=== PATIENT | female | born 1930 | race Caucasian/White ===

== ENCOUNTER 2016-09-08 17:27 | Inpatient (IN) | payer OTHER ==
[~2016-09-08] VITALS: Ht 162.6 cm; Wt 93.9 kg
--- NOTE | 2016-09-08 17:48 | ED CARDIAC/CP/PALPITATIONS ---
History of Present Illness General Chief Complaint: General Adult Stated Complaint: EKG CHANGES NEW ONSET AFIB Source: patient Exam Limitations: no limitations Vital Signs & Intake/Output Vital Signs & Intake/Output Vital Signs Date Time Temp Pulse Resp B/P B/P Pulse O2 O2 Flow FiO2 Mean Ox Delivery Rate 09/09 2015 98.2 87 18 162/82 09/08 2014 98.2 87 18 162/82 96 Room Air Room Air 09/08 1819 98.5 72 18 141/69 09/08 1818 72 18 141/69 95 Room Air Room Air 09/08 1735 98.5 126 18 164/119 95 Allergies Coded Allergies: No Known Allergies (09/08/16) Reconcile Medications Aspirin (Ecotrin*) 81 MG TABLET.DR 1 TAB PO DAILY HEART/BLOOD (Reported) Azilsartan Med/Chlorthalidone (Edarbyclor 40-25 MG Tablet) 40 MG-25 MG TABLET 1 TAB PO DAILY BP (Reported) Ezetimibe (Zetia) 10 MG TABLET 1 TAB PO DAILY CHOLESTEROL (Reported) Hydralazine HCl 25 MG TABLET 1 TAB PO BID BP (Reported) Hydrochlorothiazide 50 MG TABLET 1 TAB PO DAILY DIURETIC (Reported) Metoprolol Tartrate 50 MG TABLET 1 TAB PO BID HEART/BP (Reported) Multivitamin (Multi-Day Vitamins) 1 EACH TABLET 1 TAB PO DAILY SUPPLEMENT ( Reported) Spironolactone 25 MG TABLET 1 TAB PO DAILY DIURETIC (Reported) Triage Note: PT SENT IN BY DR. VACA FOR NEW ONSET A-FIB. PT MADE APPT. WITH HIM BECAUSE SHE HADN'T BEEN FEELING WELL SOB AFTER TAKING A FEW STEPS FOR THE PAST MONTH. PT DOES TAKE ASA 81 MG DAILY. PT WITH HX OF HTN AND HIGH CHOLESTEROL Triage Nurses Notes Reviewed? yes Onset: Gradual (6 WEEKS) Duration: week(s):, constant, continues in ED Quality/Severity: moderate, severe Radiation: no radiation HPI: 86-year-old female sent in by her primary doctor for new onset A. fib. Patient reports that she has not felt right for about a month and a half. Since around [place]anto[place] Day. She's been having some shortness of breath with exertion at times. Some fatigue and weakness. Denies any chest pain. Denies any fever or vomiting. Denies any blood thinners that she is on. Patient with to see her doctor today for a regular appointment and was found to be in new onset A. fib. Patient was sent to the hospital for further evaluation. Denies any other associated symptoms. (TAYLER RICH) Past History Travel History Traveled to [place] past 21 day No Medical History Any Pertinent Medical History? see below for history Cardiovascular: hypertension, hyperlipidemia Surgical History Surgical History: non-contributory Psychosocial History What is your primary language Finnish Tobacco Use: Never used ETOH Use: denies use Illicit Drug Use: denies illicit drug use Family History Hx Contributory? No (TAYLER RICH) Review of Systems Review of Systems Constitutional: Reports: see HPI. EENTM: Reports: no symptoms. Respiratory: Reports: see HPI. Cardiovascular: Reports: see HPI. GI: Reports: no symptoms. Genitourinary: Reports: no symptoms. Musculoskeletal: Reports: no symptoms. Skin: Reports: no symptoms. Neurological/Psychological: Reports: no symptoms. Hematologic/Endocrine: Reports: no symptoms. Immunologic/Allergic: Reports: no symptoms. All Other Systems: Reviewed and Negative (TAYLER RICH) Physical Exam Physical Exam General Appearance: well developed/nourished, no apparent distress, alert, awake Head: atraumatic, normal appearance Eyes: Bilateral: normal appearance. Ears, Nose, Throat: normal ENT inspection, hearing grossly normal Neck: normal inspection Respiratory: normal breath sounds, no respiratory distress Cardiovascular: tachycardia, irregularly irregular Gastrointestinal: soft, non-tender Rectal: heme negative stool Back: normal inspection Extremities: normal capillary refill, normal range of motion Neurologic/Psych: awake, alert, oriented x 3, normal gait, normal mood/affect Skin: intact, normal color Core Measures ACS in differential dx? No Severe Sepsis Present: No Septic Shock Present: No (TAYLER RICH) Progress Differential Diagnosis: AMI, aortic dissection, atrial fibrillation, cholecystitis, costochondritis, hyperkalemia, hypovolemia, hyperthyroid, pneumothorax, pulmonary embolism, PUD/GERD, PVCs/PACs, respiratory failure, unstable angina, V-fib/V-Tach, WPW syndrome Plan of Care: Orders Procedure Date/time Status Regular Diet 09/09 B Active Intake & Output 09/08 1954 Active OXYGEN SETUP (GEN) 09/08 1948 Active Saline Lock 09/08 1948 Active Admit to inpatient 09/08 1948 Active Vital Signs 09/08 1948 Active Activity/Ambulation 09/08 1948 Active Code Status 09/08 1948 Active Patient Data 09/08 1942 Active Add-on Test (ER Only) 09/09 1919 Active Add-on Test (ER Only) 09/08 1916 Active Add-on Test (ER Only) 09/08 1810 Active THYROID STIMULATING HORMONE 09/08 175 Complete THYROXINE 09/08 175 Complete MAGNESIUM 09/08 175 Complete FREE T4 09/08 175 Complete B-TYPE NATRIURETIC PEP (BNP) 09/08 175 Complete Telemetry/Student Services Rep 09/08 174 Active PARTIAL THROMBOPLASTIN TIME 09/08 174 Complete PROTHROMBIN TIME 09/08 174 Complete TROPONIN LEVEL 09/08 173 Complete COMPREHENSIVE METABOLIC PANEL 09/08 173 Complete CBC WITHOUT DIFFERENTIAL 09/08 173 Complete EKG 09/08 172 Active Current Medications Sig/Rayne Start time Last Medication Dose Stop Time Status Admin Heparin Sodium 25,000 UNIT Q24H 09/08 1929 AC 09/08 (Porcine) 2015 (Heparin) Sodium Chloride 500 ML Laboratory Tests 09/08/161758: Magnesium Cancelled, TSH Cancelled 09/08/161758: Anion Gap 13, Estimated GFR 36 L, BUN/Creatinine Ratio 25.7 H, Glucose 132 H, Calcium 9.7, Magnesium 2.0, Total Bilirubin 0.7, AST 88 H, ALT 138 H, Alkaline Phosphatase 117, Troponin I < 0.01, Mde-P-Ldtnjnrkjtf Pept 2520 H, Total Protein 7.2, Albumin 4.3, Globulin 2.9, Albumin/Globulin Ratio 1.5, TSH 40.100 H, Free T4 0.79 L, Thyroxine (T4) 6.6, Free T3 3.0, PT 11.3, INR 1.08, APTT 33, CBC w Diff NO MAN DIFF REQ, RBC 5.00, MCV 83.7, MCH 27.6, RDW 14.1, MPV 8.0, Gran % 70.1, Lymphocytes % 17.4 L, Monocytes % 6.9, Eosinophils % 5.0, Basophils % 0.6, Absolute Granulocytes 7.1 H, Absolute Lymphocytes 1.8, Absolute Monocytes 0.7 H, Absolute Eosinophils 0.5, Absolute Basophils 0.1, PUBS MCHC 33.0 Diagnostic Imaging: Viewed by Me: Radiology Read. Discussed w/RAD: Radiology Read. Radiology Impression: XAM TYPE: RAD - XRY-PORTABLE CHEST XRAY EXAMINATION: XR PORTABLE CHEST CLINICAL INFORMATION: Shortness of breath. COMPARISON: None TECHNIQUE: Portable AP semierect view of the chest was obtained. FINDINGS: Heart is enlarged. The cardiomediastinal silhouette is otherwise unremarkable. The lungs and pleural spaces appear clear without evidence of congestion, consolidation, or significant appearing effusion or atelectasis. There are some mild increased markings at the lung bases with questionable subtle cephalization of the pulmonary vasculature however no definite effusion is seen. There is no evidence of pneumothorax or pulmonary edema. Included osseous structures appear largely unremarkable. IMPRESSION: Heart appears mildly enlarged, mild increased markings raise the question of mild pulmonary vascular congestion without overt edema. DICTATED BY: LE HIGGINS MD DATE/TIME DICTATED:09/08/161799 DINKEY OPERATOR SLAG:MARIELENA DATE/TIME TRANSCRIBED:09/08/161799 Initial ED EKG: rate (123), AFIB, nonspecific ST T wave chg (TAYLER RICH) Departure Departure Disposition: STILL A PATIENT Condition: Stable Clinical Impression Primary Impression: Rapid atrial fibrillation Secondary Impressions: Acute kidney injury, CHF (congestive heart failure), New onset a-fib Referrals: Kailyn VACA MD (PCP/Family) Departure Forms: Customer Survey General Discharge Information Admission Note Spoke With: DELMI VALENCIA MD Documentation of Exam: Documentation of any treatments & extenuating circumstances including Concerns Regarding Discharge (functional status, medication knowledge or non-compliance, living conditions, etc.) that warrant an admission rather than observation: Patient will require cardiac telemetry. Cardiac consultation. Patient will also require IV heparin. Rate control. Echocardiogram. Patient may require IV diuresis. Spoke with Dr. Torrez from cardiology and he agrees with IV heparin. Oral meds at this time.they will consult (TAYLER RICH) PA/FUDGE CANDY MAKER Co-Sign Statement Statement: ED Attending supervision documentation- x I saw and evaluated the patient. I have also reviewed all the pertinent lab results and diagnostic results. I agree with the findings and the plan of care as documented in the PA's/FUDGE CANDY MAKER's documentation. [] I have reviewed the ED Record and agree with the PA's/FUDGE CANDY MAKER's documentation. [] Additions or exceptions (if any) to the PAs/FUDGE CANDY MAKER's note and plan are summarized below: [] (EMELI SINGLETON,BENJAMIN) Critical Care Note Critical Care Note Critical Care Time: non-applicable (TAYLER RICH)
--- NOTE | 2016-09-08 18:02 | NUR ---
BLOOD DRAWN AND SENT TO LAB [facility],GORDON LAV BLUE
--- NOTE | 2016-09-08 18:05 | RADIOLOGY REPORT ---
EXAMINATION: XR PORTABLE CHEST CLINICAL INFORMATION: Shortness of breath. COMPARISON: None TECHNIQUE: Portable AP semierect view of the chest was obtained. FINDINGS: Heart is enlarged. The cardiomediastinal silhouette is otherwise unremarkable. The lungs and pleural spaces appear clear without evidence of congestion, consolidation, or significant appearing effusion or atelectasis. There are some mild increased markings at the lung bases with questionable subtle cephalization of the pulmonary vasculature however no definite effusion is seen. There is no evidence of pneumothorax or pulmonary edema. Included osseous structures appear largely unremarkable. IMPRESSION: Heart appears mildly enlarged, mild increased markings raise the question of mild pulmonary vascular congestion without overt edema.
[2016-09-08 18:16] LABS: ABSOLUTE BASOPHIL COUNT 0.1 /CUMM (0.0-0.2); ABSOLUTE EOSINOPHIL COUNT 0.5 /CUMM (0.0-0.7); ABSOLUTE GRANULOCYTE CT 7.1 /CUMM (1.4-6.5); ABSOLUTE LYMPH COUNT 1.8 /CUMM (1.2-3.4); ABSOLUTE MONOCYTE COUNT 0.7 /CUMM (0.10-0.60); BASOPHIL % 0.6 % (0.0-2.0); GRANULOCYTE % 70.1 % (42.2-75.2); HEMATOCRIT 41.9 % (37-47); MEAN CORPUSCULAR HGB 27.6 PG (27.0-31.0); MEAN CORPUSCULAR VOLUME 83.7 FL (81.0-99.0); PLATELET COUNT 251 /CUMM (130-400); RBC DISTRIBUTION WIDTH 14.1 % (11.5-14.5); WHITE BLOOD CELL COUNT 10.1 /CUMM (4.8-10.8)
--- NOTE | 2016-09-08 18:17 | NUR ---
LINE EST #20 TO RIGHT WRIST. PT MEDICATED WITH CARDIZEM 10MG IV PER EMAR. BP PRIOR TO MEDICATION 140/104 AFIB 110'S ON CM. SHORTLY AFTER MEDICATION ADMINISTRATION BP 141/69 HR A FIB IN THE 70'S ON THE CM.
[2016-09-08] MEDS ORDERED: EDARBYCLOR 40-1 EAC1 PO (18:20)
[2016-09-08] MEDS ORDERED: METOPROLOL TART50 M1 PO (18:20)
[2016-09-08] MEDS ORDERED: SPIRONOLACTONE25 M1 PO (18:21)
[2016-09-08] MEDS ORDERED: HYDROCHLOROTHIA50 M1 PO (18:21)
[2016-09-08] MEDS ORDERED: ZETIA10 M1 PO (18:22)
[2016-09-08 18:24] LABS: PT 11.3 SEC (9.4-12.5); PTT 33 SEC (25-37)
[2016-09-08] MEDS ORDERED: HYDRALAZINE HCL25 M1 PO (18:24)
[2016-09-08] MEDS ORDERED: ASPIRIN EC81 M1 PO (18:24)
[2016-09-08] MEDS ORDERED: MULTI-DAY VITA1 EACH PO (18:24)
--- NOTE | 2016-09-08 20:07 | NUR ---
PT BED ASSIGNMENT 185-1
--- NOTE | 2016-09-08 20:18 | History & Physical ---
DAVINA QUAN MD 09/08/16 2017: General Information and HPI MD Statement: I have seen and personally examined ZANDER NOE and documented this H&P. The patient is a 86 year old F who presented with a patient stated chief complaint of new onset atrial fibrillation diagnosed by PCP. Source of Information: patient, old records Exam Limitations: no limitations History of Present Illness: Ms. Noe is a pleasant 86 year old female with PMH thyroid nodule, HTN and HLD who presents with chief complaint of atrial fibrillation diagnosed on routine EKG at her PCP Dr. Sosa's office this morning. According to the patient, about 1.[address] [place]'s day, she experienced a severe cold that lasted until about 1 week ago. The cold was noted to be associated with 1 loose stool a day (different than her normal solid stool), lethargy, malaise and increased work of breathing on exertion. This also coincided with her chronic, intermittent lower extremity edema and a 6 pound weight loss. Patient felt better about one week ago, but then this Monday/Monday she started to experience sinus congestion, non-productive cough, repeated sneezing, weakness, lethargy, shortness of breath on exertion and gaining of the 6 pounds she had previously lost. Because she continued to experience shortness of breath on exertion, she scheduled to see Dr. Sheila MD to request an inhaler but was found to be in atrial fibrillation and redirected to the [facility] ED. Of note, patient follows with Dr. Agus MD for a thyroid nodule. She also follows closely with Dr. Sheila MD who manages her hypertension. He instructed the patient to stop taking HCTZ and switch to hydralazine about 1.5 months ago, however patient confused the two medications and never switched (she continued on HCTZ while taking combined ARB/chlorthalidone). Social history is negative for illicit drug use, tobacco use or ETOH use. Surgical history is non- contributory. Allergies/Medications Allergies: Coded Allergies: No Known Allergies (09/08/16) Home Med list Aspirin (Ecotrin*) 81 MG TABLET. 1 TAB PO DAILY HEART/BLOOD (Reported) Azilsartan Med/Chlorthalidone (Edarbyclor 40-25 MG Tablet) 40 MG-25 MG TABLET 1 TAB PO DAILY BP (Reported) Ezetimibe (Zetia) 10 MG TABLET 1 TAB PO DAILY CHOLESTEROL (Reported) Hydralazine HCl 25 MG TABLET 1 TAB PO BID BP (Reported) Metoprolol Tartrate 50 MG TABLET 1 TAB PO BID HEART/BP (Reported) Multivitamin (Multi-Day Vitamins) 1 EACH TABLET 1 TAB PO DAILY SUPPLEMENT ( Reported) Spironolactone 25 MG TABLET 1 TAB PO DAILY DIURETIC (Reported) Compliance With Home Meds: GOOD Past History Travel History Traveled to [place] past 21 day No Medical History Cardiovascular: hypertension, hyperlipidemia Surgical History Surgical History: non-contributory Past Family/Social History Psychosocial History Where do you live? Home Who Do You Live With? self Services at Home: None Primary Language: [place] Smoking Status: Never Smoked ETOH Use: denies use Illicit Drug Use: denies illicit drug use Functional Ability ADLs Independent: dressing, eating, toileting, bathing. Ambulation: independent IADLs Independent: shopping, housework, finances, food prep, telephone, transportation , medication admin. Review of Systems Review of Systems Constitutional: Reports: malaise, weakness. Denies: chills, fever. EENTM: Reports: nasal congestion. Denies: visual changes, hearing changes. Cardiovascular: Reports: edema, peripheral edema. Denies: chest pain, palpitations. Respiratory: Reports: cough, short of breath. Denies: sputum production. GI: Denies: abdominal pain, nausea, vomiting. Genitourinary: Denies: dysuria, hematuria. Musculoskeletal: Denies: back pain. Skin: Denies: change in skin color, change in hair/nails, lesions. Neurological/Psychological: Denies: confusion, headache. Hematologic/Endocrine: Denies: bruising, bleeding. Immunologic/Allergic: Denies: splenectomy. All Other Systems: Reviewed and Negative Exam & Diagnostic Data Last 24 Hrs of Vital Signs/I&O Vital Signs Date Time Temp Pulse Resp B/P B/P Pulse O2 O2 Flow FiO2 Mean Ox Delivery Rate 09/09 2135 97.8 102 18 152/90 94 Room Air 09/08 2100 89 160/45 09/09 2015 98.2 87 18 162/82 09/08 2014 98.2 87 18 162/82 96 Room Air Room Air 09/08 1818 98.5 72 18 141/69 09/088 72 18 141/69 95 Room Air Room Air 09/08 1735 98.5 126 18 164/119 95 Intake & Output 09/09 0800 09/09 0000 09/08 1600 Intake Total Output Total Balance Patient 207 lb Weight Weight Standing Scale Measurement Method Physical Exam General Appearance Alert, Oriented X3, Cooperative, No Acute Distress Skin No Significant Lesion Skin Temp/Moisture Exam: Warm/Dry HEENT Atraumatic, PERRLA, EOMI, Mucous Membr. moist/pink Neck Supple, +2 Carotid Pulse wo Bruit Lymphatic Cervical nl Cardiovascular Irregularly irregular Lungs Normal Air Movement Abdomen Normal Bowel Sounds, Soft, No Tenderness Neurological Normal Speech, Normal Tone Extremities No Tenderness/Swelling, trace bilateral LE edema Vascular Pulses Symmetrical Last 24 Hrs of Labs/Jomar: Laboratory Tests 09/08/161758: Magnesium Cancelled, TSH Cancelled 09/08/161758: Anion Gap 13, Estimated GFR 36 L, BUN/Creatinine Ratio 25.7 H, Glucose 132 H, Calcium 9.7, Magnesium 2.0, Total Bilirubin 0.7, AST 88 H, ALT 138 H, Alkaline Phosphatase 117, Troponin I < 0.01, Byd-C-Bfedpemdfqp Pept 2520 H, Total Protein 7.2, Albumin 4.3, Globulin 2.9, Albumin/Globulin Ratio 1.5, TSH 40.100 H, Free T4 0.79 L, Thyroxine (T4) 6.6, Free T3 3.0, PT 11.3, INR 1.08, APTT 33, CBC w Diff NO MAN DIFF REQ, RBC 5.00, MCV 83.7, MCH 27.6, RDW 14.1, MPV 8.0, Gran % 70.1, Lymphocytes % 17.4 L, Monocytes % 6.9, Eosinophils % 5.0, Basophils % 0.6, Absolute Granulocytes 7.1 H, Absolute Lymphocytes 1.8, Absolute Monocytes 0.7 H, Absolute Eosinophils 0.5, Absolute Basophils 0.1, PUBS MCHC 33.0 Diagnostic Data EKG Results Atrial fibrillation HR 129 bpm, LBBB (incomplete) CXR Results IMPRESSION: Heart appears mildly enlarged, mild increased markings raise the question of mild pulmonary vascular congestion without overt edema. Assessment/Plan Assessment: Ms. Noe is an 86 year old female with PMH thyroid nodule, HTN and HLD who was sent in to [facility] for evaluation of new-onset atrial fibrillation by her primary care physician, Dr. Sheila MD. According to the patient, she has previously experienced a month long cold, consisting of weakness, shortness of breath on exertion, weight loss (6 pounds) and fatigue. This improved about 1 week ago but on Monday/Monday, she noted sinus congestion, shortness of breath on exertion and lethargy that prompted her to visit her PCP. In the ED: Vital signs showed T 98.5, HR 126 (decreased to 72 bpm at 10 mg IV cardizem and 60 mg PO cardizem), RR 18, BP 164/199 and O2 saturation of 95% on room air. Labs were significant for an unremarkable CBC, K 5.2, HCO3 21, BUN/cre 36/1.4 (last cre 1.4 on 08/18/16), Glu 132, AST 88, ALT 138, proBNP 2520, troponin <0.01, TSH 40.1, FT4 0.79, T4 6.6, FT3 3, and INR 1.08. CXR showed mildly enlarged heart, mild increased markings suggestive of mild pulmonary vascular congestion without overt edema. Patient is admitted to the telemetry floor and the following is the management: 1. New-onset atrial fibrillation * Possibly 2/2 thyroid dysfunction? * Continuous telemetry monitoring on tele * Continue IV heparin drip * Place cardio consult in AM * Continue rate control meds, including lopressor 12.5 mg PO BID, cardizem 30 mg PO Q6 * If current rate control regimen does not control heart rate, consider cardizem drip * Echocardiogram pending, follow up results * Trend troponins/EKG x 3 2. Abnormal thyroid panel * TSH 40.1, FT4 0.79, T4 6.6, FT3 3 * Consideration for possible prior subacute hyperthyroid state during patient's 1 month illness followed by current hypothyroid state?, differential also includes sick euthyroid syndrome * Repeat TFTs in AM 3. Acute transaminitis * In the setting of elevated proBNP, increased pulmonary vascular congestion on CXR, intermittent lower extremity edema and elevated AST/ALT, consider fluid overload state 2/2 CHF on differential * Follow up echocardiogram * Repeat LFTs and monitor for resolution * Of note, no history of abdominal pain/nausea/vomiting and RUQ nontender on palpation 4. Chronic renal insufficiency * Recent lab values show cre of 1.2-1.4, current cre 1.4 * Repeat BEP and monitor electrolytes closely * Avoid nephrotoxins 5. HTN, HLD * Continue ASA 81 mg PO daily * Continue metoprolol and cardizem as noted above * Zetia 10 mg PO daily FULL CODE DVTP: IV heparin Heart Healthy Diet Mild pain pathway As Ranked By This Provider Problem List: 1. New onset a-fib 2. Transaminitis 3. Hypothyroid 4. Acute kidney injury Core Measures/Miscellaneous Acute Coronary Syndrome ACS Diagnosis: No Cerebrovascular Accident CVA/TIA Diagnosis: No Congestive Heart Failure CHF Diagnosis: No Venous Thromboembolism VTE Risk Factors: Acute medical illness, Age > 40, Obesity No [facility] VTE prophylaxis d/t: No contraindications No VTE Pharm Prophylaxis d/t: No contraindications VTE Diagnosis: No VTE Type: NONE VTE Confirmed by (Test): NONE Severe Sepsis Severe Sepsis Present: No Septic Shock Septic Shock Present: No Miscellaneous Documentation Attending Case Discussed With: DELMI VALENCIA MD Primary Care Physician: Kailyn SOSA MD Patient sees these Specialists Dr. Agus MD- Endocrinology Level of Patient Care: Telemetry [facility] 0239: Resident Review Statement Resident Statement: examined this patient, discussed with underwriting intern, agreed with underwriting intern Other Findings: Problem List: * New onset Atrial Fibrillation * Hypertension * Hyperlipidemia * H/O thyroid nodules currently presenting with elevated TSH and low T4. ? Hypothyroidism in the setting of subacute thyroiditis from URTI vs Sick Euthyroid. Plan: * Admit to telemetry * Heparin gtt for anticoagulation. * Rate control with Cardizem 30Q6 for now. If tachycardic, start Cardizem drip for rate control. Decrease Metoprolol to 12.5 mg BID to prevent reflex tachycardia, before weaning off completely. * Continue other home medications. * Consider replacing LT4 * Consider Endo consult in AM for elevated TSH levels with decrease FT4 * Pain Pathway: Tylenol PRN * DVT PPX: Heparin gtt * Code Status: Full Code DELMI VALENCIA 09/09/16 0730: Attending MD Review Statement Attending Statement Attending Statement: examined this patient, discuss w/resident/PA/LUG BREAKER AND WIRE PULLER, agreed w/resident/PA/LUG BREAKER AND WIRE PULLER, reviewed EMR data (avail), reviewed images, amended to note Attending Assessment/Plan: CC: Sent by PCP for new onset A. fib PMH: HTN, HLD, thyroid nodule Patient was not feeling chronically well since one month of symptoms of lethargy , malaise, increased work of breathing, chronic intermittent lower extremity edema. Symptoms improved 1 week back but then again gradually she started to feel lethargy labored breathing so she followed up with PCP, found to have new onset A. fib was sent to ER. Currently denies any shortness of breath, chest pain, palpitations, chest tightness. Of note patient was recently switched from hydrochlorothiazide to hydralazine, but she got confused and continued hydrochlorothiazide instead of hydralazine and so taking chlorthalidone and hydrochlorothiazide at the same time. Vitals: Afebrile, HR 126 at presentation improved to 70s after 1 dose of Cardizem IV, RR, blood pressure, O2 saturation within acceptable range. On exam: A O 3, cooperative, no acute distress, neck supple, JVD normal, no lymphadenopathy, mucosa moist, no focal neurological deficit, no dependent edema , no obvious skin rashes or inflammation CVS: S1-S2, RRR. RS: Clear to auscultate bilaterally. Abdomen: Soft, NT, ND, bowel sounds present. Labs: CBC unremarkable, mildly elevated creatinine to 1.4, AST 88, ALT 138, alkaline phosphatase 117, troponin 0.01, proBNP 2520, TSH 40. EKG: A. fib CXR: Heart appears mildly enlarged, mild increased markings raise the question of mild pulmonary vascular congestion without overt edema. A and P Patient comes in for new onset A. fib, no precipitating factors. History of hypertension dyslipidemia, probably rate controlled with metoprolol. Patient's heart rate was in 130s when she arrived, received 1 dose of Cardizem and heart rate was lower than 100. Even though chest x-ray mentions mild congestion, patient is comfortable without any acute distress, not on any oxygen. Given her elevated creatinine and excessive thiazide diuretic use, will hold Lasix for now , reassess in a.m. patient has transaminitis of unclear etiology. + New-onset A. fib + Mild pulmonary congestion + Renal insufficiency + Transaminitis + Hypothyroidism - Admit to telemetry - Hold HCTZ and chlorthalidone, ACEI - Continue metoprolol at lower dose 12.5 twice a day - Continue Cardizem 60 mg by mouth every 8 hours - If patient has RVR, consider starting IV Cardizem drip - Continue heparin drip - Cardiology consult in a.m. - 2-D echocardiogram - Serial EKG and troponin - 1 dose of IV Lasix in a.m. - Adequate pain control - Repeat TSH in a.m. - Endocrine consult
--- NOTE | 2016-09-08 20:20 | NUR ---
ASSUMED CARE FROM NEAL DURÁN
--- NOTE | 2016-09-08 20:28 | NUR ---
PT A/O X4. RESP UNLABORED. PT AFIB ON THE MONITOR. HR 70-90. PT APPEARS TO BE RESTING COMFORTABLY. DENIES PAIN AND SOB. SKIN WARM AND DRY. NO APPARENT DISTRESS. PT MEDICATED WITH CARDIZEM PO. HEPARIN INFUSING.
[2016-09-08 21:36] VITALS: BP 152/90
[2016-09-09 03:18] LABS: PTT > 120 SEC (25-37)
--- NOTE | 2016-09-09 07:31 | Admission Certification ---
Admission Certification Certification Statement - As attending physician, I certify that at the time of - admission, based on clinical presentation, severity of - symptoms, need for further diagnostic testing and - therapeutic interventions, and risk of adverse outcomes - without in-hospital treatment, in my clinical assessment, - this patient requires an acute hospital stay for a minimum - of two nights or longer. I have also considered psychsocial - factors such as support system, advanced age, financial - issues, cognitive issues, and failed out-patient treatments, - past re-admission history, safety of patient, and lack of - compliance as applicable. Specific rationale supporting this admission is: New onset A. fib, hypothyroidism
[2016-09-09 08:20] VITALS: BP 130/74
[2016-09-09 11:26] LABS: ABSOLUTE BASOPHIL COUNT 0 /CUMM (0.0-0.2); ABSOLUTE EOSINOPHIL COUNT 0.2 /CUMM (0.0-0.7); ABSOLUTE GRANULOCYTE CT 7.3 /CUMM (1.4-6.5); ABSOLUTE MONOCYTE COUNT 0.7 /CUMM (0.10-0.60); BASOPHIL % 0.3 % (0.0-2.0); EOSINOPHIL % 2.1 % (0-5); GRANULOCYTE % 71.2 % (42.2-75.2); HEMATOCRIT 40.5 % (37-47); MEAN CORPUSCULAR HGB 27.6 PG (27.0-31.0); MEAN CORPUSCULAR HGB CONC 32.7 G/DL (33.0-37.0); MEAN CORPUSCULAR VOLUME 84.4 FL (81.0-99.0); MEAN PLATELET VOLUME 8.7 FL (7.4-10.4); PLATELET COUNT 217 /CUMM (130-400); RBC DISTRIBUTION WIDTH 13.9 % (11.5-14.5); WHITE BLOOD CELL COUNT 10.2 /CUMM (4.8-10.8)
[2016-09-09 11:37] LABS: PTT > 120 SEC (25-37)
--- NOTE | 2016-09-09 12:18 | PN- Att Addend ---
Attending Addendum Attending Brief Note Patient seen and examined, feels tired. She did not get a good night sleep. She denies any current shortness of breath or any palpitations. Patient is admitted with a new onset A. fib. Vital Signs Date Time Temp Pulse Resp B/P B/P Pulse O2 O2 Flow FiO2 Mean Ox Delivery Rate 09/09 922 72 118/78 09/09 0825 Room Air Room Air 09/09 0820 97.9 78 18 130/74 95 Room Air 09/09 0735 88 130/74 09/09 0135 88 148/70 09/08 2136 97.8 102 18 152/90 94 Room Air 09/08 2100 89 160/45 09/09 2015 98.2 87 18 162/82 09/08 2014 98.2 87 18 162/82 96 Room Air Room Air 09/08 1819 98.5 72 18 141/69 09/08 1818 72 18 141/69 95 Room Air Room Air 09/08 1735 98.5 126 18 164/119 95 on exam; aox3, nad. cv; s1,s2, irregular resp; clear abd; soft, nt, bs+ ext; trace edema. Laboratory Tests 09/09 09/09 09/09 1000 1000 0230 Chemistry Sodium Pending Potassium Pending Chloride Pending Carbon Dioxide Pending Anion Gap Pending BUN Pending Creatinine Pending BUN/Creatinine Ratio Pending Troponin I (< 0.11 ng/ml) 0.03 0.04 TSH &T3 &Free T4 Intrp Pending Coagulation APTT (25 - 37 SEC) > 120 *H > 120 *H Hematology CBC w Diff NO MAN DIFF REQ WBC (4.8 - 10.8 /CUMM) 10.2 RBC (4.20 - 5.40 /CUMM) 4.80 Hgb (12.0 - 16.0 G/DL) 13.3 Hct (37 - 47 %) 40.5 MCV (81.0 - 99.0 FL) 84.4 MCH (27.0 - 31.0 PG) 27.6 RDW (11.5 - 14.5 %) 13.9 Plt Count (130 - 400 /CUMM) 217 MPV (7.4 - 10.4 FL) 8.7 Gran % (42.2 - 75.2 %) 71.2 Lymphocytes % (20.5 - 51.1 %) 19.8 L Monocytes % (1.7 - 9.3 %) 6.6 Eosinophils % (0 - 5 %) 2.1 Basophils % (0.0 - 2.0 %) 0.3 Absolute Granulocytes (1.4 - 6.5 /CUMM) 7.3 H Absolute Lymphocytes (1.2 - 3.4 /CUMM) 2.0 Absolute Monocytes (0.10 - 0.60 /CUMM) 0.7 H Absolute Eosinophils (0.0 - 0.7 /CUMM) 0.2 Absolute Basophils (0.0 - 0.2 /CUMM) 0 PUBS MCHC (33.0 - 37.0 G/DL) 32.7 L 09/08 09/08 1759 1759 Chemistry Sodium (137 - 145 mmol/L) 137 Potassium (3.5 - 5.1 mmol/L) 5.2 H Chloride (98 - 107 mmol/L) 103 Carbon Dioxide (22 - 30 mmol/L) 21 L Anion Gap (5 - 16) 13 BUN (7 - 17 mg/dL) 36 H Creatinine (0.5 - 1.0 mg/dL) 1.4 H Estimated GFR (>60 ml/min) 36 L BUN/Creatinine Ratio (7 - 25 %) 25.7 H Glucose (65 - 99 mg/dL) 132 H Calcium (8.4 - 10.2 mg/dL) 9.7 Magnesium (1.6 - 2.3 mg/dL) Cancelled 2.0 Total Bilirubin (0.2 - 1.3 mg/dL) 0.7 AST (14 - 36 U/L) 88 H ALT (9 - 52 U/L) 138 H Alkaline Phosphatase (<127 U/L) 117 Troponin I (< 0.11 ng/ml) < 0.01 Rap-I-Yijytsxgkcz Pept (<125 pg/mL) 2520 H Total Protein (6.3 - 8.2 g/dL) 7.2 Albumin (3.5 - 5.0 g/dL) 4.3 Globulin (1.9 - 4.2 gm/dL) 2.9 Albumin/Globulin Ratio (1.1 - 2.2 %) 1.5 TSH (0.270 - 4.200 uIU/mL) Cancelled 40.100 H Free T4 (0.85 - 1.93 ng/dL) 0.79 L Thyroxine (T4) (4.5 - 10.9 ug/dL) 6.6 Free T3 (2.34 - 5.61 pg/mL) 3.0 Coagulation PT (9.4 - 12.5 SEC) 11.3 INR (0.90 - 1.19) 1.08 APTT (25 - 37 SEC) 33 Hematology CBC w Diff NO MAN DIFF REQ WBC (4.8 - 10.8 /CUMM) 10.1 RBC (4.20 - 5.40 /CUMM) 5.00 Hgb (12.0 - 16.0 G/DL) 13.8 Hct (37 - 47 %) 41.9 MCV (81.0 - 99.0 FL) 83.7 MCH (27.0 - 31.0 PG) 27.6 RDW (11.5 - 14.5 %) 14.1 Plt Count (130 - 400 /CUMM) 251 MPV (7.4 - 10.4 FL) 8.0 Gran % (42.2 - 75.2 %) 70.1 Lymphocytes % (20.5 - 51.1 %) 17.4 L Monocytes % (1.7 - 9.3 %) 6.9 Eosinophils % (0 - 5 %) 5.0 Basophils % (0.0 - 2.0 %) 0.6 Absolute Granulocytes (1.4 - 6.5 /CUMM) 7.1 H Absolute Lymphocytes (1.2 - 3.4 /CUMM) 1.8 Absolute Monocytes (0.10 - 0.60 /CUMM) 0.7 H Absolute Eosinophils (0.0 - 0.7 /CUMM) 0.5 Absolute Basophils (0.0 - 0.2 /CUMM) 0.1 PUBS MCHC (33.0 - 37.0 G/DL) 33.0 A/P; 86 y/o F with pmh sig for abnormal TFTs, thyroid nodule, HTN and HLD admitted for new onset A. fib. Patient also had mild pulmonary vascular congestion and mild CAIO. At this point her rate is controlled with oral medications. As discussed with cardiology, she will be kept on her home dose of beta anne-marie metoprolol 50 twice a day. She is currently on 30 mg of Cardizem every 6 hours, can likely switch her to Cardizem CD 120 mg as discussed with Dwayne Liao MD. Anticoagulation was also discussed and he is recommending Eliquis. Please obtain endocrine consult for abnormal TFTs. If heart rate under control, echo does not show any significant findings and patient stable from endocrine standpoint, likely discharge over the weekend. DVT Px; currently on IV heparin but will switch her to Eliquis.
--- NOTE | 2016-09-09 12:32 | Cons- Cardiology ---
General Information and HPI Consulting Request Date of Consult: 09/09/16 Requested By: EMANUEL JULES MD Reason for Consult: New onset atrial fibrillation Source of Information: patient, family, old records History of Present Illness: This is an 86-year-old female with a past medical history of left bundle-branch block, hypertension, hyperlipidemia, and statin intolerance is referred to [facility] after being found to be in new onset atrial fibrillation and her PCP's office. She notes symptoms of an upper respiratory tract infection that started in July and after that had been experiencing some dyspnea on exertion without chest pain and some intermittent lower extremity edema which she has had in the past. This was not associated with any chest pain, palpitations, presyncope, headache, slurring of speech, or fever. She did experience some weakness. She denied any orthopnea or paroxysmal nocturnal dyspnea. Denies any bleeding episodes. She did report a nonproductive cough. On my interview with the patient this morning she feels well with no symptoms at rest. Allergies/Medications Allergies: Coded Allergies: No Known Allergies (09/08/16) Home Med List: Aspirin (Ecotrin*) 81 MG TABLET.DR 1 TAB PO DAILY HEART/BLOOD (Reported) Azilsartan Med/Chlorthalidone (Edarbyclor 40-25 MG Tablet) 40 MG-25 MG TABLET 1 TAB PO DAILY BP (Reported) Ezetimibe (Zetia) 10 MG TABLET 1 TAB PO DAILY CHOLESTEROL (Reported) Hydralazine HCl 25 MG TABLET 1 TAB PO BID BP (Reported) Metoprolol Tartrate 50 MG TABLET 1 TAB PO BID HEART/BP (Reported) Multivitamin (Multi-Day Vitamins) 1 EACH TABLET 1 TAB PO DAILY SUPPLEMENT ( Reported) Spironolactone 25 MG TABLET 1 TAB PO DAILY DIURETIC (Reported) Current Medications: Current Medications Sig/Rayne Start time Last Medication Dose Route Stop Time Status Admin Acetaminophen 650 MG Q8P PRN 09/09 0145 AC PO Aspirin Buffered 81 MG DAILY 09/09 1000 AC 09/09 PO 0923 Diltiazem HCl 30 MG Q6 09/08 2359 AC 09/09 PO 0735 Diltiazem HCl 60 MG ONCE ONE 09/08 1929 DC 09/08 PO 09/08 Diltiazem HCl 0 .STK-MED ONE 09/08 1815 DC .ROUTE Diltiazem HCl 10 MG ONCE ONE 09/08 1800 DC 09/08 IV PUSH 09/08 1801 1819 Ezetimibe 10 MG DAILY 09/09 1000 DC PO Ezetimibe 10 MG DAILY 09/08 2245 AC 09/09 PO 0035 Heparin Sodium 0 .STK-MED ONE 09/08 2000 DC (Porcine) .ROUTE Heparin Sodium 5,000 UNIT ONCE ONE 09/08 1930 DC 09/08 (Porcine) IV 09/08 Heparin Sodium 25,000 UNIT Q24H 09/08 193 AC 09/08 (Porcine) IV 2016 Sodium Chloride 500 ML Metoprolol Tartrate 12.5 MG BID 09/09 1000 AC 09/09 PO 0923 Review of Systems Review of Systems: Review of systems as per HPI. The remainder of a 10 point review of systems was reviewed and was otherwise negative. Past History Travel History Traveled to [place] past 21 day No Medical History Cardiovascular: hypertension, hyperlipidemia Surgical History Surgical History: non-contributory Psychosocial History Where Do You Live? Home Who Do You Live With? self Services at Home: None Primary Language: Nicarag[place] Smoking Status: Never Smoked ETOH Use: denies use Illicit Drug Use: denies illicit drug use Functional Ability ADLs Independent: dressing, eating, toileting, bathing. Ambulation: independent IADLs Independent: shopping, housework, finances, food prep, telephone, transportation , medication admin. Exam & Diagnostic Data Vital Signs and I&O Vital Signs Date Time Temp Pulse Resp B/P B/P Pulse O2 O2 Flow FiO2 Mean Ox Delivery Rate 09/09 0923 72 118/78 09/09 0825 Room Air Room Air 09/09 0820 97.9 78 18 130/74 95 Room Air 09/09 0735 88 130/74 09/09 0135 88 148/70 09/08 2136 97.8 102 18 152/90 94 Room Air 09/08 2100 89 160/45 09/09 2015 98.2 87 18 162/82 09/08 2014 98.2 87 18 162/82 96 Room Air Room Air 09/08 181 98.5 72 18 141/69 09/08 1818 72 18 141/69 95 Room Air Room Air 09/08 1735 98.5 126 18 164/119 95 Intake & Output 09/09 1600 09/09 0800 09/09 0000 09/08 1600 09/08 0809/08 0000 Intake Total 695 200 Output Total 225 Balance 470 200 Intake, IV 575 Intake, Oral 120 200 Output, Urine 225 Patient 207 lb Weight Weight Standing Scale Measurement Method Physical Exam: General: no apparent distress. Alert. Eyes: No obvious scleral icterus. HEENT: No jugular venous distention or abnormal jugular venous pulsations. Cardiovascular: Normal intensity S1/S2. Irregular Respiratory: Lungs clear to auscultation bilaterally. Abdomen: Soft, nontender with no guarding or rebound tenderness. Musculoskeletal: No clubbing or cyanosis noted Skin: No obvious rashes or ulcerations, trace lower extremity edema Neurologic: No gross focal deficits noted. Lymph: No gross lymphadenopathy. Labs/Jomar Results: Laboratory Tests 09/09 09/09 09/09 1000 1000 0230 Chemistry Sodium Pending Potassium Pending Chloride Pending Carbon Dioxide Pending Anion Gap Pending BUN Pending Creatinine Pending BUN/Creatinine Ratio Pending Troponin I (< 0.11 ng/ml) 0.03 0.04 TSH &T3 &Free T4 Intrp Pending Coagulation APTT (25 - 37 SEC) > 120 *H > 120 *H Hematology CBC w Diff NO MAN DIFF REQ WBC (4.8 - 10.8 /CUMM) 10.2 RBC (4.20 - 5.40 /CUMM) 4.80 Hgb (12.0 - 16.0 G/DL) 13.3 Hct (37 - 47 %) 40.5 MCV (81.0 - 99.0 FL) 84.4 MCH (27.0 - 31.0 PG) 27.6 RDW (11.5 - 14.5 %) 13.9 Plt Count (130 - 400 /CUMM) 217 MPV (7.4 - 10.4 FL) 8.7 Gran % (42.2 - 75.2 %) 71.2 Lymphocytes % (20.5 - 51.1 %) 19.8 L Monocytes % (1.7 - 9.3 %) 6.6 Eosinophils % (0 - 5 %) 2.1 Basophils % (0.0 - 2.0 %) 0.3 Absolute Granulocytes (1.4 - 6.5 /CUMM) 7.3 H Absolute Lymphocytes (1.2 - 3.4 /CUMM) 2.0 Absolute Monocytes (0.10 - 0.60 /CUMM) 0.7 H Absolute Eosinophils (0.0 - 0.7 /CUMM) 0.2 Absolute Basophils (0.0 - 0.2 /CUMM) 0 PUBS MCHC (33.0 - 37.0 G/DL) 32.7 L 09/08 09/08 1759 1759 Chemistry Sodium (137 - 145 mmol/L) 137 Potassium (3.5 - 5.1 mmol/L) 5.2 H Chloride (98 - 107 mmol/L) 103 Carbon Dioxide (22 - 30 mmol/L) 21 L Anion Gap (5 - 16) 13 BUN (7 - 17 mg/dL) 36 H Creatinine (0.5 - 1.0 mg/dL) 1.4 H Estimated GFR (>60 ml/min) 36 L BUN/Creatinine Ratio (7 - 25 %) 25.7 H Glucose (65 - 99 mg/dL) 132 H Calcium (8.4 - 10.2 mg/dL) 9.7 Magnesium (1.6 - 2.3 mg/dL) Cancelled 2.0 Total Bilirubin (0.2 - 1.3 mg/dL) 0.7 AST (14 - 36 U/L) 88 H ALT (9 - 52 U/L) 138 H Alkaline Phosphatase (<127 U/L) 117 Troponin I (< 0.11 ng/ml) < 0.01 Itg-K-Yejsagljrhu Pept (<125 pg/mL) 2520 H Total Protein (6.3 - 8.2 g/dL) 7.2 Albumin (3.5 - 5.0 g/dL) 4.3 Globulin (1.9 - 4.2 gm/dL) 2.9 Albumin/Globulin Ratio (1.1 - 2.2 %) 1.5 TSH (0.270 - 4.200 uIU/mL) Cancelled 40.100 H Free T4 (0.85 - 1.93 ng/dL) 0.79 L Thyroxine (T4) (4.5 - 10.9 ug/dL) 6.6 Free T3 (2.34 - 5.61 pg/mL) 3.0 Coagulation PT (9.4 - 12.5 SEC) 11.3 INR (0.90 - 1.19) 1.08 APTT (25 - 37 SEC) 33 Hematology CBC w Diff NO MAN DIFF REQ WBC (4.8 - 10.8 /CUMM) 10.1 RBC (4.20 - 5.40 /CUMM) 5.00 Hgb (12.0 - 16.0 G/DL) 13.8 Hct (37 - 47 %) 41.9 MCV (81.0 - 99.0 FL) 83.7 MCH (27.0 - 31.0 PG) 27.6 RDW (11.5 - 14.5 %) 14.1 Plt Count (130 - 400 /CUMM) 251 MPV (7.4 - 10.4 FL) 8.0 Gran % (42.2 - 75.2 %) 70.1 Lymphocytes % (20.5 - 51.1 %) 17.4 L Monocytes % (1.7 - 9.3 %) 6.9 Eosinophils % (0 - 5 %) 5.0 Basophils % (0.0 - 2.0 %) 0.6 Absolute Granulocytes (1.4 - 6.5 /CUMM) 7.1 H Absolute Lymphocytes (1.2 - 3.4 /CUMM) 1.8 Absolute Monocytes (0.10 - 0.60 /CUMM) 0.7 H Absolute Eosinophils (0.0 - 0.7 /CUMM) 0.5 Absolute Basophils (0.0 - 0.2 /CUMM) 0.1 PUBS MCHC (33.0 - 37.0 G/DL) 33.0 Diagnostic Data EKG Results Tracing was personally reviewed and shows atrial fibrillation at 91 bpm with left bundle branch block CXR Results IMPRESSION: Heart appears mildly enlarged, mild increased markings raise the question of mild pulmonary vascular congestion without overt edema. Other Results Telemetry tracings were personally reviewed and show atrial fibrillation with controlled ventricular response rate Assessment/Plan Assessment/Plan 1. New onset atrial fibrillation 2. History of chronic left bundle-branch block 3. Dyspnea on exertion 4. Abnormal TFTs 5. HTN 6. HLD with statin intolerance The patient is noted to be in new onset atrial fibrillation which may have been contributing to some of her dyspnea over the last couple of months. Recommend continuing her outpatient metoprolol and adding Cardizem 120 mg extended release daily. Her troponins are within normal limits and she does not appear to be in congestive heart failure. I had an extensive discussion with the patient regarding the risks versus benefits of full anticoagulation and reviewed various options. After careful discussion and given her elevated CHADS-Vasc score she has elected to proceed with full anticoagulation and chooses twice a day Eliquis at this time. Aspirin can be discontinued while on full anticoagulation. Echocardiogram has been ordered and is currently pending. She may be a candidate for outpatient cardioversion in the future if she does not spontaneously convert to sinus rhythm after discharge. Fernandez Liao MD [facility] Consult Acknowledgment - Thank you for your consult request.
--- NOTE | 2016-09-09 12:44 | ECHOCARDIOGRAM REPORT ---
ZANDER DUKE Age: 86 : 1930 Gender: F Exam Date: 09/09/2016 09:49 Exam Location: 1 [address] Ht (in): 64 Wt (lb): 207 BSA: 2.10 BP: 130 / 74 Ordering Physician: DAVEY PUENTES MD Referring Physician: DAVEY PUENTES MD Technologist: Travis Baum [facility] Room Number: 185-1 Indications: AFIB/FLUTTER Rhythm: Technical Quality: FINDINGS Left Ventricle Left ventricular cavity size normal. Left ventricular wall thickness mildly increased. Abnormal septal motion consistent with left bundle branch block. Left ventricular ejection fraction is estimated at > 55 %. Right Ventricle Normal right ventricular size and function. Right Atrium Mild right atrial dilatation. Left Atrium Mild left atrial dilatation. Mitral Valve Mild mitral annular calcification. No mitral stenosis. Mild mitral regurgitation. Aortic Valve Trileaflet aortic valve. No aortic stenosis. Tricuspid Valve Structurally normal tricuspid valve. [id number] tricuspid regurgitation. Right ventricular systolic pressure estimated at 40 mmHg. Pulmonic Valve Pulmonic valve not well visualized, grossly normal. Pericardium Small posterior pericardial effusion. No echocardiographic findings to suggest a hemodynamically significant pericardial effusion. Great Vessels Normal size aortic root. CONCLUSIONS Left ventricular cavity size normal. Left ventricular wall thickness mildly increased. Abnormal septal motion consistent with left bundle branch block. Left ventricular ejection fraction is estimated at > 55 %. Normal right ventricular size and function. Mild right atrial dilatation. Mild left atrial dilatation. Qkzg-hu-vjbdlenz tricuspid regurgitation. Right ventricular systolic pressure estimated at 40 mmHg. Small posterior pericardial effusion. No echocardiographic findings to suggest a hemodynamically significant pericardial effusion. Dwayne Liao M.D. (Electronically Signed) Final Date: 09 Sep 2016 12:44 MEASUREMENTS (Male / Female) Normal Values 2D ECHO LV Diastolic Diameter PLAX 3.8 cm 4.2 - 5.9 / 3.9 - 5.3 cm LV Systolic Diameter PLAX 2.4 cm 2.1 - 4.0 cm LV Fractional Shortening PLAX 36.8 % 25 - 46 % LV Ejection Fraction 2D Teich 67.5 % IVS Diastolic Thickness 1.3 cm LVPW Diastolic Thickness 1.1 cm LV Relative Wall Thickness 0.6 RV Internal Dim ED PLAX 2.9 cm 1.9 - 3.8 cm LVOT Diameter 1.7 cm Aortic Root Diameter 2.0 cm LA Systolic Diameter LX 2.9 cm 3.0 - 4.0 / 2.7 - 3.8 cm LA Volume 44.0 cm 18 - 58 / 22 - 52 cm Ascending Aorta Diameter 2.5 cm DOPPLER AV Peak Velocity 112.0 cm/s AV Peak Gradient 5.0 mmHg AV Mean Velocity 76.5 cm/s AV Mean Gradient 3.0 mmHg AV Velocity Time Integral 21.0 cm LVOT Peak Velocity 82.7 cm/s LVOT Peak Gradient 2.7 mmHg LVOT Mean Velocity 58.2 cm/s LVOT Mean Gradient 2.0 mmHg LVOT Velocity Time Integral 17.8 cm LVOT Stroke Volume 40.4 cm AV Area Cont Eq vti 1.9 cm AV Area Cont Eq pk 1.7 cm MV Peak Velocity 104.0 cm/s MV Peak Gradient 4.3 mmHg MV Mean Velocity 52.9 cm/s MV Mean Gradient 1.0 mmHg Mitral E Point Velocity 97.7 cm/s Mitral A Point Velocity 47.4 cm/s Mitral E to A Ratio 2.1 MV PHT Velocity 109.0 cm/s MV Deceleration [place] 406.0 cm/s MV Pressure Half Time 80.5 ms MV Area PHT 2.7 cm MV Deceleration Time 180.0 ms TR Peak Velocity 296.0 cm/s TR Peak Gradient 35.0 mmHg Right Atrial Pressure 5.0 mmHg Pulmonary Artery Systolic Pressu 40.0 mmHg Right Ventricular Systolic Press 40.0 mmHg PV Peak Velocity 67.6 cm/s PV Peak Gradient 1.8 mmHg PV Mean Velocity 43.5 cm/s PV Mean Gradient 1.0 mmHg PV Velocity Time Integral 14.5 cm
--- NOTE | 2016-09-09 13:16 | Cons- Endocrinology ---
General Information and HPI Consulting Request Date of Consult: 09/09/16 Requested By: medical team Reason for Consult: evaluation of abnormal TFT. Source of Information: patient, old records Exam Limitations: no limitations History of Present Illness: Patient has had history of multinodular goiter. There are 4 nodules in her right thyroid lobe measuring 8 mm, 8 mm, 2.1 cm and 6 mm in size. Biopsy was done in 2010 and her right dominant thyroid nodule was benign. Her anti TPO wasb 33 and anti Tg was < 28. Her TSH was between 2.92 and 4.67 over past several years and clinically she was asymptomatic. I saw her in office for routine f/u on 08/17/2016. Repeat TFT was done on 08/18/2016-- TSH was 0.311 and free T4 was 1.40. Patient was admitted for atrial fibrillation and HR in the 120s. Repeat blood work on 09/08/2016 showed TSH 40.1 and free T4 0.79. Over past 5-6 weeks, patient has been sick with cold. She denied having neck pain or significant sore throat. Allergies/Medications Allergies: Coded Allergies: No Known Allergies (09/08/16) Home Med List: Aspirin (Ecotrin*) 81 MG TABLET.DR 1 TAB PO DAILY HEART/BLOOD (Reported) Azilsartan Med/Chlorthalidone (Edarbyclor 40-25 MG Tablet) 40 MG-25 MG TABLET 1 TAB PO DAILY BP (Reported) Ezetimibe (Zetia) 10 MG TABLET 1 TAB PO DAILY CHOLESTEROL (Reported) Hydralazine HCl 25 MG TABLET 1 TAB PO BID BP (Reported) Metoprolol Tartrate 50 MG TABLET 1 TAB PO BID HEART/BP (Reported) Multivitamin (Multi-Day Vitamins) 1 EACH TABLET 1 TAB PO DAILY SUPPLEMENT ( Reported) Spironolactone 25 MG TABLET 1 TAB PO DAILY DIURETIC (Reported) Review of Systems Review of Systems Constitutional: Reports: see HPI. Cardiovascular: Reports: palpitations. Respiratory: Reports: short of breath. GI: Denies: abdominal pain. Genitourinary: Denies: dysuria. Musculoskeletal: Denies: muscle pain. Hematologic/Endocrine: Denies: polyuria, polydipsia. Past History Travel History Traveled to [place] past 21 day No Medical History Cardiovascular: hypertension, hyperlipidemia Endocrine: thyroid nodules Surgical History Surgical History: non-contributory Psychosocial History Where Do You Live? Home Who Do You Live With? self Services at Home: None Primary Language: [place] Smoking Status: Never Smoked ETOH Use: denies use Illicit Drug Use: denies illicit drug use Functional Ability ADLs Independent: dressing, eating, toileting, bathing. Ambulation: independent IADLs Independent: shopping, housework, finances, food prep, telephone, transportation , medication admin. Exam & Diagnostic Data Last 24 Hrs of Vital Signs/I&O Vital Signs Date Time Temp Pulse Resp B/P B/P Pulse O2 O2 Flow FiO2 Mean Ox Delivery Rate 09/09 0923 72 118/78 09/09 0825 Room Air Room Air 09/09 0820 97.9 78 18 130/74 95 Room Air 09/09 0735 88 130/74 09/09 0135 88 148/70 09/08 2136 97.8 102 18 152/90 94 Room Air 09/08 2100 89 160/45 09/09 2015 98.2 87 18 162/82 09/08 2014 98.2 87 18 162/82 96 Room Air Room Air 09/08 1819 98.5 72 18 141/69 09/08 1818 72 18 141/69 95 Room Air Room Air 09/08 1735 98.5 126 18 164/119 95 Intake & Output 09/09 1600 09/09 0800 09/09 0000 Intake Total 695 200 Output Total 225 Balance 470 200 Intake, IV 575 Intake, Oral 120 200 Output, Urine 225 Patient 207 lb Weight Weight Standing Scale Measurement Method Physical Exam General Appearance: no apparent distress Neck: thyromegaly Respiratory: lungs clear Cardiovascular: irregularly irregular Extremities: no edema Labs/Jomar Results: Laboratory Tests 09/09 09/09 09/09 1000 1000 0230 Chemistry Sodium Pending Potassium Pending Chloride Pending Carbon Dioxide Pending Anion Gap Pending BUN Pending Creatinine Pending BUN/Creatinine Ratio Pending Troponin I (< 0.11 ng/ml) 0.03 0.04 TSH &T3 &Free T4 Intrp Pending Coagulation APTT (25 - 37 SEC) > 120 *H > 120 *H Hematology CBC w Diff NO MAN DIFF REQ WBC (4.8 - 10.8 /CUMM) 10.2 RBC (4.20 - 5.40 /CUMM) 4.80 Hgb (12.0 - 16.0 G/DL) 13.3 Hct (37 - 47 %) 40.5 MCV (81.0 - 99.0 FL) 84.4 MCH (27.0 - 31.0 PG) 27.6 RDW (11.5 - 14.5 %) 13.9 Plt Count (130 - 400 /CUMM) 217 MPV (7.4 - 10.4 FL) 8.7 Gran % (42.2 - 75.2 %) 71.2 Lymphocytes % (20.5 - 51.1 %) 19.8 L Monocytes % (1.7 - 9.3 %) 6.6 Eosinophils % (0 - 5 %) 2.1 Basophils % (0.0 - 2.0 %) 0.3 Absolute Granulocytes (1.4 - 6.5 /CUMM) 7.3 H Absolute Lymphocytes (1.2 - 3.4 /CUMM) 2.0 Absolute Monocytes (0.10 - 0.60 /CUMM) 0.7 H Absolute Eosinophils (0.0 - 0.7 /CUMM) 0.2 Absolute Basophils (0.0 - 0.2 /CUMM) 0 PUBS MCHC (33.0 - 37.0 G/DL) 32.7 L 09/08 05 1759 1759 Chemistry Sodium (137 - 145 mmol/L) 137 Potassium (3.5 - 5.1 mmol/L) 5.2 H Chloride (98 - 107 mmol/L) 103 Carbon Dioxide (22 - 30 mmol/L) 21 L Anion Gap (5 - 16) 13 BUN (7 - 17 mg/dL) 36 H Creatinine (0.5 - 1.0 mg/dL) 1.4 H Estimated GFR (>60 ml/min) 36 L BUN/Creatinine Ratio (7 - 25 %) 25.7 H Glucose (65 - 99 mg/dL) 132 H Calcium (8.4 - 10.2 mg/dL) 9.7 Magnesium (1.6 - 2.3 mg/dL) Cancelled 2.0 Total Bilirubin (0.2 - 1.3 mg/dL) 0.7 AST (14 - 36 U/L) 88 H ALT (9 - 52 U/L) 138 H Alkaline Phosphatase (<127 U/L) 117 Troponin I (< 0.11 ng/ml) < 0.01 [id number] Pept (<125 pg/mL) 2520 H Total Protein (6.3 - 8.2 g/dL) 7.2 Albumin (3.5 - 5.0 g/dL) 4.3 Globulin (1.9 - 4.2 gm/dL) 2.9 Albumin/Globulin Ratio (1.1 - 2.2 %) 1.5 TSH (0.270 - 4.200 uIU/mL) Cancelled 40.100 H Free T4 (0.85 - 1.93 ng/dL) 0.79 L Thyroxine (T4) (4.5 - 10.9 ug/dL) 6.6 Free T3 (2.34 - 5.61 pg/mL) 3.0 Coagulation PT (9.4 - 12.5 SEC) 11.3 INR (0.90 - 1.19) 1.08 APTT (25 - 37 SEC) 33 Hematology CBC w Diff NO MAN DIFF REQ WBC (4.8 - 10.8 /CUMM) 10.1 RBC (4.20 - 5.40 /CUMM) 5.00 Hgb (12.0 - 16.0 G/DL) 13.8 Hct (37 - 47 %) 41.9 MCV (81.0 - 99.0 FL) 83.7 MCH (27.0 - 31.0 PG) 27.6 RDW (11.5 - 14.5 %) 14.1 Plt Count (130 - 400 /CUMM) 251 MPV (7.4 - 10.4 FL) 8.0 Gran % (42.2 - 75.2 %) 70.1 Lymphocytes % (20.5 - 51.1 %) 17.4 L Monocytes % (1.7 - 9.3 %) 6.9 Eosinophils % (0 - 5 %) 5.0 Basophils % (0.0 - 2.0 %) 0.6 Absolute Granulocytes (1.4 - 6.5 /CUMM) 7.1 H Absolute Lymphocytes (1.2 - 3.4 /CUMM) 1.8 Absolute Monocytes (0.10 - 0.60 /CUMM) 0.7 H Absolute Eosinophils (0.0 - 0.7 /CUMM) 0.5 Absolute Basophils (0.0 - 0.2 /CUMM) 0.1 PUBS MCHC (33.0 - 37.0 G/DL) 33.0 Assessment/Plan Assessment/Plan 86 y/o female has had history of multinodular goiter. Her TSH was between 2.92 and 4.67 over past several years and clinically she was asymptomatic. Repeat TFT was done on 08/18/2016-- TSH was 0.311 and free T4 was 1.40. Patient was admitted for atrial fibrillation and HR was in the 120s. Repeat blood work on 09/08/2016 showed TSH 40.1 and free T4 0.79. Over past 5-6 weeks, patient has been sick with cold. She denied having neck pain or significant sore throat. The significant changes of TFT over past several weeks could be ? subacute thyroiditis. 1. repeat TFT to look for a trend; 2. repeat thyroid antibody panel; 3. recommend checking thyroglobulin level and ESR. will follow. Consult Acknowledgment - Thank you for your consult request.
--- NOTE | 2016-09-09 13:42 | Patient Discharge Instructions ---
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 Please followup with regular doctor next week after Discharge. 2. please followup with your waste transportation technician next week after discharge. 3. Have your thyroid function tests checked on 09/23/16 and every two weeks afterwards. Please follow up with your bottom polisher Dr. Clare Goldsmith after your first test and have results faxed to her. Diet Continue normal diet: Yes Activity Full Activity/No Limits: Yes Acute Coronary Syndrome Inclusion Criteria At DC or during hospital stay patient has or had the following: ACS DIAGNOSIS No Discharge Core Measures Meds if any: Prescribed or Continued at Discharge Meds if any: NOT Prescribed or Continued at Discharge Congestive Heart Failure Inclusion Criteria At DC or during hospital stay patient has or had the following: CHF DIAGNOSIS No Discharge Core Measures Meds if any: Prescribed or Continued at Discharge Meds if any: NOT Prescribed or Continued at Discharge Cerebrovascular accident Inclusion Criteria At DC or during hospital stay patient has or had the following: CVA/TIA Diagnosis No Discharge Core Measures Meds if any: Prescribed or Continued at Discharge Meds if any: NOT Prescribed or Continued at Discharge Venous thromboembolism Inclusion Criteria VTE Diagnosis No VTE Type NONE VTE Confirmed by (Test) NONE Discharge Core Measures - Per Current guidelines, there needs to be overlap - treatment for the first 5 days of Warfarin therapy. - If discharged on Warfarin prior to 5 days of - overlap therapy, the patient will need to be - assessed for post discharge needs including - *Post discharge parental anticoagulation - *Warfarin and/or parental anticoagulation education - *Follow up date to check INR post discharge At least 5 days overlap therapy as Inpatient No Meds if any: Prescribed or Continued at Discharge Note: Overlap Therapy is Warfarin and Anticoagulant Meds if any: NOT Prescribed or Continued at Discharge
--- NOTE | 2016-09-09 14:32 | PN- Housestaff ---
Subjective Follow-up For: New onset A. fib Acute Renal insufficiency Hyperkalemia Abnormal thyroid function test Subjective: This morning patient is alert, awake and oriented. She denies any chest pain, shortness of breath, palpitations, dizziness or lightheadedness. She is currently on IV heparin drip. Review of Systems Constitutional: Reports: see HPI. Objective Last 24 Hrs of Vital Signs/I&O Vital Signs Date Time Temp Pulse Resp B/P B/P Pulse O2 O2 Flow FiO2 Mean Ox Delivery Rate 09/09 922 72 118/78 09/09 0825 Room Air Room Air 09/09 0820 97.9 78 18 130/74 95 Room Air 09/09 0735 88 130/74 09/09 0135 88 148/70 09/08 2136 97.8 102 18 152/90 94 Room Air 09/08 2100 89 160/45 09/09 2015 98.2 87 18 162/82 09/08 2014 98.2 87 18 162/82 96 Room Air Room Air 09/08 1819 98.5 72 18 141/69 09/08 1818 72 18 141/69 95 Room Air Room Air 09/08 1735 98.5 126 18 164/119 95 Intake & Output 09/09 1600 09/09 0800 09/09 0000 Intake Total 695 200 Output Total 225 Balance 470 200 Intake, IV 575 Intake, Oral 120 200 Output, Urine 225 Patient 207 lb Weight Weight Standing Scale Measurement Method Physical Exam General Appearance: Alert, Oriented X3, Cooperative, No Acute Distress Neck: Supple Cardiovascular: irregularly irregular Lungs: mild crackles bilaterally Abdomen: Normal Bowel Sounds, Soft, No Tenderness Neurological: Normal Speech, Strength at 5/5 X4 Ext, Sensation Intact, Cranial Nerves 3-12 NL Extremities: 1+ pitting edema bilaterally Current Medications: Current Medications Sig/Rayne Start time Last Medication Dose Route Stop Time Status Admin Acetaminophen 650 MG Q8P PRN 09/09 0145 AC PO Apixaban 5 MG BID 09/09 2200 AC PO Aspirin Buffered 81 MG DAILY 09/09 1000 DC 09/09 PO 0923 Diltiazem HCl 120 MG DAILY 09/10 1000 AC PO Diltiazem HCl 30 MG Q6 09/08 2359 DC 09/09 PO 0735 Diltiazem HCl 60 MG ONCE ONE 09/08 1929 DC 09/08 PO 09/08 Diltiazem HCl 0 .STK-MED ONE 09/08 1814 DC .ROUTE Diltiazem HCl 10 MG ONCE ONE 09/08 1800 DC 09/08 IV PUSH 09/08 1800 181 Ezetimibe 10 MG DAILY 09/09 1000 DC PO Ezetimibe 10 MG DAILY 09/08 2245 AC 09/09 PO 0035 Heparin Sodium 0 .STK-MED ONE 09/08 2000 DC (Porcine) .ROUTE Heparin Sodium 5,000 UNIT ONCE ONE 09/08 193 DC 09/08 (Porcine) IV 09/08 Heparin Sodium 25,000 UNIT Q24H 09/08 193 DC 09/08 (Porcine) IV 09/09 Sodium Chloride 500 ML Metoprolol Tartrate 50 MG BID 09/09 2199 AC PO Metoprolol Tartrate 12.5 MG BID 09/09 1000 DC 09/09 PO 0923 Last 24 Hrs of Lab/Jomar Results Last 24 Hrs of Labs/Mics: Laboratory Tests 09/09/16 1000: Troponin I 0.03 09/09/16 1000: Anion Gap 15, Estimated GFR 39 L, BUN/Creatinine Ratio 30.0 H, TSH &T3 &Free T4 Intrp 25.800 H, APTT > 120 *H, CBC w Diff NO MAN DIFF REQ, RBC 4.80, MCV 84.4, MCH 27.6, RDW 13.9, MPV 8.7, Gran % 71.2, Lymphocytes % 19.8 L, Monocytes % 6.6, Eosinophils % 2.1, Basophils % 0.3, Absolute Granulocytes 7.3 H, Absolute Lymphocytes 2.0, Absolute Monocytes 0.7 H, Absolute Eosinophils 0.2, Absolute Basophils 0, PUBS MCHC 32.7 L, Thyroglobulin Antibody Pending 09/09/16 0230: Troponin I 0.04, APTT > 120 *H 09/08/16 175: Magnesium Cancelled, TSH Cancelled 09/08/16 175: Anion Gap 13, Estimated GFR 36 L, BUN/Creatinine Ratio 25.7 H, Glucose 132 H, Calcium 9.7, Magnesium 2.0, Total Bilirubin 0.7, AST 88 H, ALT 138 H, Alkaline Phosphatase 117, Troponin I < 0.01, [id number]-Xwrlbzrhsuc Pept 2520 H, Total Protein 7.2, Albumin 4.3, Globulin 2.9, Albumin/Globulin Ratio 1.5, TSH 40.100 H, Free T4 0.79 L, Thyroxine (T4) 6.6, Free T3 3.0, PT 11.3, INR 1.08, APTT 33, CBC w Diff NO MAN DIFF REQ, RBC 5.00, MCV 83.7, MCH 27.6, RDW 14.1, MPV 8.0, Gran % 70.1, Lymphocytes % 17.4 L, Monocytes % 6.9, Eosinophils % 5.0, Basophils % 0.6, Absolute Granulocytes 7.1 H, Absolute Lymphocytes 1.8, Absolute Monocytes 0.7 H, Absolute Eosinophils 0.5, Absolute Basophils 0.1, PUBS MCHC 33.0 Assessment/Plan Assessment: She is 86-year-old woman with past medical history of hypertension, hyperlipidemia, left bundle branch block and thyroid nodule status post biopsy that found to be negative of malignancy, not on any thyroid medications. She was admitted on telemetry floor for following problems. 1. New onset atrial fibrillation. Per Patient she had Holter monitor for 24 hours last year but no abnormal rhythm was noted. Currently on heparin drip. Rate was under control after getting 10 mg dose of IV Cardizem on admission. on PO Cardizem and Metoprolol right now. Heart rate is in the range of 70-90 2. Abnormal thyroid function tests, TSH 40 40.100, Free T4 0.79. TFTs on 08/18 found to be normal. 3. Hyperkalemia 5.5 4. Mild acute renal insufficiency, Cr 1.4 5. Mild transaminitis PLAN * Monitor vitals closely * Continue IV heparin drip for now and start Eliquis 5 mg twice a day. First dose tonight. Will DC IV heparin drip 2 hours after first dose of Eliquis. * Restarted home dose of metoprolol 50 mg twice a day * Started patient on Cardizem 120 mg daily * Appreciate cardio consult * Repeat BEP later today for hyperkalemia * Monitor kidney functions. Avoid nephrotoxins * Endo consult appreciated * We will repeat thyroid function tests tomorrow. will check thyroid antibody panel, thyroglobulin. * Echocardiogram: Left ventricular ejection fraction > 55 %. Mild right and left atrial dilatation. Mild to moderate tricuspid regurgitation. Small posterior pericardial effusion. * DVT prophylaxis * Pain pathway * Heart healthy diet * Full code Problem List: 1. Rapid atrial fibrillation Pain Ratin Pain Location: none Pain Goal: Pain 4 or less Pain Plan: tylenol Tomorrow's Labs & Rationales: bep DVT/Prophylaxis: pharmacological
[2016-09-09 16:36] VITALS: BP 120/70
[2016-09-09 20:20] LABS: PTT 94 SEC (25-37)
[2016-09-09 23:00] VITALS: BP 122/74
[2016-09-10 07:56] VITALS: BP 122/90
--- NOTE | 2016-09-10 08:48 | PN- Housestaff ---
See Addendum Subjective Follow-up For: New onset A. fib Acute Renal insufficiency Hyperkalemia Abnormal thyroid function test Complaints: no complaints Tele-Events Since Last Visit: Atrial fibrillation rate 70s to low 90s Subjective: Patient was visited and examined this morning. Patient denies any complains of chest pain, shortness of breath, palpitation, dizziness, weakness. no Incident overnights. Vital signs remained stable. Review of Systems Constitutional: Reports: no symptoms. Cardiovascular: Reports: no symptoms. Respiratory: Reports: no symptoms. Gastrointestinal: Reports: no symptoms. Objective Last 24 Hrs of Vital Signs/I&O Vital Signs Date Time Temp Pulse Resp B/P B/P Pulse O2 O2 Flow FiO2 Mean Ox Delivery Rate 09/10 1131 64 122/90 / 0756 99.1 64 14 122/90 94 Room Air 09/09 2300 97.9 99 18 122/74 95 Room Air 09/09 2049 101 122/74 09/09 1636 97.3 58 18 120/70 95 Room Air Intake & Output 09/10 1600 09/10 0800 09/10 0000 Intake Total 200 454 Output Total Balance 200 454 Intake, IV 0 104 Intake, Oral 200 350 Number 0 0 Bowel Movements Physical Exam General Appearance: Alert, Oriented X3, Cooperative, No Acute Distress HEENT: Atraumatic, PERRLA, EOMI, Mucous Membr. moist/pink Neck: No JVD Cardiovascular: Normal S1, Normal S2, No Murmurs, irregularly irregular Abdomen: Soft, No Tenderness Neurological: Normal Speech Assessment/Plan Assessment: She is 86-year-old woman w/ new onset A.fib 1. New onset atrial fibrillation. Continue diltiazem 120 mg by mouth daily Continue metoprolol 50 mg by mouth twice a day Elevated [id number] score ; continue Eliquis for stroke prevention 5 mg by mouth twice a day 2. Abnormal thyroid function tests, TSH 40 40.100, Free T4 0.79. TFTs on 08/18 found to be normal. * Follow endocrinology consults 3. Hyperkalemia-resolved 4. Mild acute renal insufficiency and elevated BUN. Possibly due to prerenal acidemia due to dehydration BUN/creatinine are both improving 5. Mild transaminitis DVT prophylaxis Pain pathway Heart healthy diet Full code Problem List: 1. 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 Hypothyroid 3. Transaminitis 4. Acute kidney injury 5. New onset a-fib 6. Rapid atrial fibrillation Pain Ratin Pain Location: back Pain Goal: Pain 4 or less Pain Plan: tylenol Tomorrow's Labs & Rationales: bep DVT/Prophylaxis: pharmacological
[2016-09-10 11:31] VITALS: BP 122/90
--- NOTE | 2016-09-10 12:10 | PN- Endocrinology ---
Assessment/Plan Assessment: 86 y/o female has had history of multinodular goiter. Her TSH was between 2.92 and 4.67 over past several years and clinically she was asymptomatic. Repeat TFT was done on 08/18/2016-- TSH was 0.311 and free T4 was 1.40. Patient was admitted for atrial fibrillation and HR was in the 120s. Repeat blood work on 09/08/2016 showed TSH 40.1 and free T4 0.79. Over past 5-6 weeks, patient was sick with cold. She denied having neck pain or significant sore throat. Repeat blood work showed anti TG > 500, ESR 35, TSH 43.3 and free T4 0.84--- consistent with Corina's thyroiditis and hypothyroidism. She is still in atrial fibrillation with HR between 64 and 100. 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 start Levothyroxine 25 mcg daily today; 2. monitor TFT every 2 weeks and then I will adjust her thyroid medication accordingly. Her thyroid function will be gradually normalized over 6-8 weeks. 3. f/u in office after discharge. The plan has been discussed with team, patient and family member. Subjective Subjective: She feels okay this morning. As per team, most likely she will be going home today Objective Last 24 Hrs of Vital Signs/I&O Vital Signs Date Time Temp Pulse Resp B/P B/P Pulse O2 O2 Flow FiO2 Mean Ox Delivery Rate 09/10 1131 64 122/90 09/10 0756 99.1 64 14 122/90 94 Room Air 09/09 2300 97.9 99 18 122/74 95 Room Air 09/09 2049 101 122/74 09/09 1636 97.3 58 18 120/70 95 Room Air Intake & Output 09/10 1600 09/10 0800 09/10 0000 Intake Total 200 454 Output Total Balance 200 454 Intake, IV 0 104 Intake, Oral 200 350 Number 0 0 Bowel Movements Results Pertinent Lab/Jomar Results: Laboratory Tests 09/10 09/09 09/09 0640 1835 1000 Chemistry Sodium (137 - 145 mmol/L) 137 136 L Potassium (3.5 - 5.1 mmol/L) 4.7 4.7 Chloride (98 - 107 mmol/L) 101 97 L Carbon Dioxide (22 - 30 mmol/L) 23 25 Anion Gap (5 - 16) 13 14 BUN (7 - 17 mg/dL) 35 H 41 H Creatinine (0.5 - 1.0 mg/dL) 1.2 H 1.2 H Estimated GFR (>60 ml/min) 42 L 42 L BUN/Creatinine Ratio (7 - 25 %) 29.2 H 34.2 H Troponin I (< 0.11 ng/ml) 0.03 TSH (0.270 - 4.200 uIU/mL) 43.300 H Free T4 (0.85 - 1.93 ng/dL) 0.84 L Coagulation APTT (25 - 37 SEC) 94 H Hematology ESR Westergren (0 - 20 MM) 35 H Immunology Thyroglobulin Antibody (< 61 U/mL) Pending Thyroid Peroxidase Ab (< 61 U/mL) Pending 09/09 09/09 1000 0230 Chemistry Sodium (137 - 145 mmol/L) 138 Potassium (3.5 - 5.1 mmol/L) 5.5 H Chloride (98 - 107 mmol/L) 101 Carbon Dioxide (22 - 30 mmol/L) 22 Anion Gap (5 - 16) 15 BUN (7 - 17 mg/dL) 39 H Creatinine (0.5 - 1.0 mg/dL) 1.3 H Estimated GFR (>60 ml/min) 39 L BUN/Creatinine Ratio (7 - 25 %) 30.0 H Troponin I (< 0.11 ng/ml) 0.04 TSH &T3 &Free T4 Intrp (0.270 - 4.20 uIU/mL) 25.800 H Coagulation APTT (25 - 37 SEC) > 120 *H > 120 *H Hematology CBC w Diff NO MAN DIFF REQ WBC (4.8 - 10.8 /CUMM) 10.2 RBC (4.20 - 5.40 /CUMM) 4.80 Hgb (12.0 - 16.0 G/DL) 13.3 Hct (37 - 47 %) 40.5 MCV (81.0 - 99.0 FL) 84.4 MCH (27.0 - 31.0 PG) 27.6 RDW (11.5 - 14.5 %) 13.9 Plt Count (130 - 400 /CUMM) 217 MPV (7.4 - 10.4 FL) 8.7 Gran % (42.2 - 75.2 %) 71.2 Lymphocytes % (20.5 - 51.1 %) 19.8 L Monocytes % (1.7 - 9.3 %) 6.6 Eosinophils % (0 - 5 %) 2.1 Basophils % (0.0 - 2.0 %) 0.3 Absolute Granulocytes (1.4 - 6.5 /CUMM) 7.3 H Absolute Lymphocytes (1.2 - 3.4 /CUMM) 2.0 Absolute Monocytes (0.10 - 0.60 /CUMM) 0.7 H Absolute Eosinophils (0.0 - 0.7 /CUMM) 0.2 Absolute Basophils (0.0 - 0.2 /CUMM) 0 PUBS MCHC (33.0 - 37.0 G/DL) 32.7 L Immunology Thyroglobulin Antibody (< 61 U/mL) > 500 H 09/08 09/08 1759 1759 Chemistry Sodium (137 - 145 mmol/L) 137 Potassium (3.5 - 5.1 mmol/L) 5.2 H Chloride (98 - 107 mmol/L) 103 Carbon Dioxide (22 - 30 mmol/L) 21 L Anion Gap (5 - 16) 13 BUN (7 - 17 mg/dL) 36 H Creatinine (0.5 - 1.0 mg/dL) 1.4 H Estimated GFR (>60 ml/min) 36 L BUN/Creatinine Ratio (7 - 25 %) 25.7 H Glucose (65 - 99 mg/dL) 132 H Calcium (8.4 - 10.2 mg/dL) 9.7 Magnesium (1.6 - 2.3 mg/dL) Cancelled 2.0 Total Bilirubin (0.2 - 1.3 mg/dL) 0.7 AST (14 - 36 U/L) 88 H ALT (9 - 52 U/L) 138 H Alkaline Phosphatase (<127 U/L) 117 Troponin I (< 0.11 ng/ml) < 0.01 [id number]-Gkfutupdudz Pept (<125 pg/mL) 2520 H Total Protein (6.3 - 8.2 g/dL) 7.2 Albumin (3.5 - 5.0 g/dL) 4.3 Globulin (1.9 - 4.2 gm/dL) 2.9 Albumin/Globulin Ratio (1.1 - 2.2 %) 1.5 TSH (0.270 - 4.200 uIU/mL) Cancelled 40.100 H Free T4 (0.85 - 1.93 ng/dL) 0.79 L Thyroxine (T4) (4.5 - 10.9 ug/dL) 6.6 Free T3 (2.34 - 5.61 pg/mL) 3.0 Coagulation PT (9.4 - 12.5 SEC) 11.3 INR (0.90 - 1.19) 1.08 APTT (25 - 37 SEC) 33 Hematology CBC w Diff NO MAN DIFF REQ WBC (4.8 - 10.8 /CUMM) 10.1 RBC (4.20 - 5.40 /CUMM) 5.00 Hgb (12.0 - 16.0 G/DL) 13.8 Hct (37 - 47 %) 41.9 MCV (81.0 - 99.0 FL) 83.7 MCH (27.0 - 31.0 PG) 27.6 RDW (11.5 - 14.5 %) 14.1 Plt Count (130 - 400 /CUMM) 251 MPV (7.4 - 10.4 FL) 8.0 Gran % (42.2 - 75.2 %) 70.1 Lymphocytes % (20.5 - 51.1 %) 17.4 L Monocytes % (1.7 - 9.3 %) 6.9 Eosinophils % (0 - 5 %) 5.0 Basophils % (0.0 - 2.0 %) 0.6 Absolute Granulocytes (1.4 - 6.5 /CUMM) 7.1 H Absolute Lymphocytes (1.2 - 3.4 /CUMM) 1.8 Absolute Monocytes (0.10 - 0.60 /CUMM) 0.7 H Absolute Eosinophils (0.0 - 0.7 /CUMM) 0.5 Absolute Basophils (0.0 - 0.2 /CUMM) 0.1 PUBS MCHC (33.0 - 37.0 G/DL) 33.0
[2016-09-10] MEDS ORDERED: SYNTHROID25 MCG PO (12:42)
[2016-09-10] MEDS ORDERED: ELIQUIS5 M1 PO (13:05)
[2016-09-10] MEDS ORDERED: DILTIAZEM ER120 M2 PO (13:07)
--- NOTE | 2016-09-10 15:39 | PN- Cardiology ---
Subjective Subjective: Feeling well. No chest pain. No palpitations. No diaphoresis. She is planned for discharge home today. Objective Vital Signs and I&Os Vital Signs Date Time Temp Pulse Resp B/P B/P Pulse O2 O2 Flow FiO2 Mean Ox Delivery Rate 09/10 1131 64 122/90 05/ 0756 99.1 64 14 122/90 94 Room Air 09/09 2300 97.9 99 18 122/74 95 Room Air 09/09 2049 101 122/74 09/09 1636 97.3 58 18 120/70 95 Room Air Intake & Output 09/10 1600 09/10 0800 09/10 0000 09/09 1600 09/09 0800 09/09 0000 Intake Total 200 454 800 695 200 Output Total 225 Balance 200 454 800 470 200 Intake, IV 0 104 575 Intake, Oral 200 350 800 120 200 Number 0 0 Bowel Movements Output, Urine 225 Patient 207 lb Weight Weight Standing Scale Measurement Method Physical Exam: Gen: NAD HEENT: normal Lungs: clear to auscultation, normal resp. effort Heart: Irregularly irregular, S1, S2, no murmurs Abdomen: Soft, nontender, no masses Extremities: No clubbing, cyanosis, or edema. Neuro: Alert and oriented x 3, cranial nerves intact Current Medications: Current Medications Sig/Rayne Start time Last Medication Dose Route Stop Time Status Admin Acetaminophen 650 MG Q8P PRN 09/09 0145 AC PO Apixaban 5 MG BID 09/09 2200 AC 09/10 PO 1131 Diltiazem HCl 120 MG DAILY 09/10 1000 AC 09/10 PO 1130 Ezetimibe 10 MG DAILY 09/08 2245 AC 09/10 PO 1131 Heparin Sodium 25,000 UNIT Q24H 09/09 1630 DC (Porcine) IV 09/10 0000 Sodium Chloride 500 ML Levothyroxine Sodium 0.025 MG DAILY AC 09/11 0700 CAN PO Metoprolol Tartrate 50 MG BID 09/09 220 AC 09/10 PO 1131 Results Last 48 Hrs of Labs/Mics: Laboratory Tests 09/10/16 0640: Anion Gap 13, Estimated GFR 42 L, BUN/Creatinine Ratio 29.2 H, TSH 43.300 H, Free T4 0.84 L, ESR Westergren 35 H, Thyroglobulin Antibody > 500 H, Thyroid Peroxidase Ab < 28 09/09/16 1835: Anion Gap 14, Estimated GFR 42 L, BUN/Creatinine Ratio 34.2 H, APTT 94 H 09/09/16 1000: Troponin I 0.03 09/09/16 1000: Anion Gap 15, Estimated GFR 39 L, BUN/Creatinine Ratio 30.0 H, TSH &T3 &Free T4 Intrp 25.800 H, APTT > 120 *H, CBC w Diff NO MAN DIFF REQ, RBC 4.80, MCV 84.4, MCH 27.6, RDW 13.9, MPV 8.7, Gran % 71.2, Lymphocytes % 19.8 L, Monocytes % 6.6, Eosinophils % 2.1, Basophils % 0.3, Absolute Granulocytes 7.3 H, Absolute Lymphocytes 2.0, Absolute Monocytes 0.7 H, Absolute Eosinophils 0.2, Absolute Basophils 0, PUBS MCHC 32.7 L, Thyroglobulin Antibody > 500 H 09/09/16 0230: Troponin I 0.04, APTT > 120 *H 09/08/16 1759: Magnesium Cancelled, TSH Cancelled 09/08/16 1759: Anion Gap 13, Estimated GFR 36 L, BUN/Creatinine Ratio 25.7 H, Glucose 132 H, Calcium 9.7, Magnesium 2.0, Total Bilirubin 0.7, AST 88 H, ALT 138 H, Alkaline Phosphatase 117, Troponin I < 0.01, Vbc-E-Vyvcpvrvjqc Pept 2520 H, Total Protein 7.2, Albumin 4.3, Globulin 2.9, Albumin/Globulin Ratio 1.5, TSH 40.100 H, Free T4 0.79 L, Thyroxine (T4) 6.6, Free T3 3.0, PT 11.3, INR 1.08, APTT 33, CBC w Diff NO MAN DIFF REQ, RBC 5.00, MCV 83.7, MCH 27.6, RDW 14.1, MPV 8.0, Gran % 70.1, Lymphocytes % 17.4 L, Monocytes % 6.9, Eosinophils % 5.0, Basophils % 0.6, Absolute Granulocytes 7.1 H, Absolute Lymphocytes 1.8, Absolute Monocytes 0.7 H, Absolute Eosinophils 0.5, Absolute Basophils 0.1, PUBS MCHC 33.0 Assessment/Plan Assessment/Plan Assessment: 1. New onset atrial fibrillation, rate controlled 2. Left bundle-branch block 3. Hypertension Plan: * The patient is planned for discharge home today. * Continue Eliquis * Continue current cardiac medications. * Follow up in the office in one week with Dr. Liao Continue telemetry? No
--- NOTE | 2016-09-11 08:14 | Discharge Summary ---
See Addendum Visit Information Visit Dates Admission Date: 09/08/16 Discharge Date: 09/10/16 Hospital Course Course Attending Physician: WOODY FRY M.D Primary Care Physician: Kailyn VACA MD Consulting Request: Consulting Specialty: Cardiology Hospital Course: She is 86-year-old woman with past medical history of hypertension, hyperlipidemia, chronic left bundle branch block and thyroid nodule status post biopsy that found to be negative of malignancy, not on any thyroid medications. Vital Signs Date Time Temp Pulse Resp B/P B/P Pulse O2 O2 Flow FiO2 Mean Ox Delivery Rate 09/09 2015 98.2 87 18 162/82 09/08 2014 98.2 87 18 162/82 96 Room Air Room Air 09/08 181 98.5 72 18 141/69 09/08 1818 72 18 141/69 95 Room Air Room Air 09/08 1735 98.5 126 18 164/119 95 Laboratory Tests 09/08/16 1759: Magnesium Cancelled, TSH Cancelled 09/08/16 1759: Anion Gap 13, Estimated GFR 36 L, BUN/Creatinine Ratio 25.7 H, Glucose 132 H, Calcium 9.7, Magnesium 2.0, Total Bilirubin 0.7, AST 88 H, ALT 138 H, Alkaline Phosphatase 117, Troponin I < 0.01, Kbr-B-Hystknoolda Pept 2520 H, Total Protein 7.2, Albumin 4.3, Globulin 2.9, Albumin/Globulin Ratio 1.5, TSH 40.100 H, Free T4 0.79 L, Thyroxine (T4) 6.6, Free T3 3.0, PT 11.3, INR 1.08, APTT 33, CBC w Diff NO MAN DIFF REQ, RBC 5.00, MCV 83.7, MCH 27.6, RDW 14.1, MPV 8.0, Gran % 70.1, Lymphocytes % 17.4 L, Monocytes % 6.9, Eosinophils % 5.0, Basophils % 0.6, Absolute Granulocytes 7.1 H, Absolute Lymphocytes 1.8, Absolute Monocytes 0.7 H, Absolute Eosinophils 0.5, Absolute Basophils 0.1, PUBS MCHC 33.0. CXR: Heart appears mildly enlarged, mild increased markings raise the question of mild pulmonary vascular congestion without overt edema. EKG: Atrial fibrillation She was admitted on telemetry floor for new onset atrial fibrillation. In ER she was given Cardizem 10 mg IV push and started on 60 mg PO Cardizem Q8. She was also started on heparin drip. Cardizem drip was not started as her rate was well controlled. On floor she was seen by manager of patient. He recommended to continue her outpatient dose of metoprolol and changing dose of Cardizem to 120 mg extended release daily. Her troponins 3 were negative and she did not have any acute ST-T wave changes later on. After careful discussion and given her elevated CHADS-Vasc score she was started on twice a day Eliquis at this time. Aspirin was discontinued while on full anticoagulation. For her elevated TSH may consulted drift miner, Dr. paula. According to Dr. paula her TSH was between 2.92 and 4.67 over past several years and clinically she was asymptomatic. Repeat TFT was done on 08/18/2016-- TSH was 0.311 and free T4 was 1.40. She recommended to repeat PFTs to look for a trend. Thyroid antibody panel was also repeated. Repeated blood work showed anti TG > 500, ESR 35, TSH 43.3 and free T4 0.84--- consistent with Corina's thyroiditis and hypothyroidism. She was started on Levothyroxine [address] paula she will monitor TFT every 2 weeks and then adjust her thyroid medication accordingly. Her thyroid function will be gradually normalized over 6-8 weeks. Plan was discussed with patient and family members. Allergies: Coded Allergies: No Known Allergies (09/08/16) Disposition Summary Disposition Principal Diagnosis: new onset Afib Additional Diagnosis: Corina's thyroiditis Discharge Disposition: home or self care Discharge Instructions General Discharge Information Code Status: Full Code Patient's Diet: Heart healthy diet Patient's Activity: Independent Follow-Up Instructions/Appts: 1. Please followup with regular doctor next week after Discharge. 2. please followup with your manager of patient next week after discharge. 3. Have your thyroid function tests checked on 09/23/16 and every two weeks afterwards. Please follow up with your drift miner Dr. Clare Paula after your first test and have results faxed to her. Medications at Discharge Discharge Medications: Stop taking the following medications: Aspirin (Ecotrin*) 81 MG TABLET. ORAL DAILY Continue taking these medications: Azilsartan Med/Chlorthalidone (Edarbyclor 40-25 MG Tablet) 40 MG-25 MG TABLET 1 Tablet ORAL DAILY Qty = 30 Comments: NOT TAKEN IN HOSPITAL Metoprolol Tartrate (Metoprolol Tartrate) 50 MG TABLET 1 Tablet ORAL TWICE DAILY Qty = 180 Comments: Last Taken: 09/10/16 Time: 11:00 AM Spironolactone (Spironolactone) 25 MG TABLET 1 Tablet ORAL DAILY Qty = 90 Comments: NOT TAKEN IN HOSPITAL Ezetimibe (Zetia) 10 MG TABLET 1 Tablet ORAL DAILY Qty = 30 Comments: Last Taken: 09/10/16 Time: 11:00 AM Hydralazine HCl (Hydralazine HCl) 25 MG TABLET 1 Tablet ORAL TWICE DAILY Qty = 180 Comments: NOT TAKEN IN HOSPITAL Multivitamin (Multi-Day Vitamins) 1 EACH TABLET 1 Tablet ORAL DAILY Comments: NOT TAKEN IN HOSPITAL Start taking the following new medications: Apixaban (Eliquis) 5 MG TABLET 1 Tablet ORAL TWICE DAILY Qty = 30 No Refills Comments: Last Taken: 09/10/16 Time: 11:00 AM Diltiazem Cd (Diltiazem ER) 120 MG CAP.ER.DEG 1 Tablet ORAL DAILY Qty = 30 No Refills Comments: Last Taken: 09/10/16 Time: 11:00 AM Levothyroxine Sodium (Synthroid) 25 MCG TABLET 1 Tablet ORAL DAILY Qty = 30 No Refills Comments: NOT TAKEN IN HOSPITAL Copies To: Kailyn VACA MD
== END 2016-09-10 15:30 | DRG 310 ==
LOC: ERH 17:27 → 1NO 19:49 → ERHI 19:49 → 1NO 19:49 → ENRESERV 20:01 → 1NO 21:19 → ENPENDDIS 09-10 13:19 → 1NO 09-10 15:30
PROVIDERS: Internal Medicine; Physician Assistant Medical; ADMIT Internal Medicine
DX: I48.91 Unspecified atrial fibrillation (principal); I44.7 Left bundle-branch block, unspecified; I10 Essential (primary) hypertension; Z79.01 Long term (current) use of anticoagulants; E66.9 Obesity, unspecified; Z68.35 Body mass index [BMI] 35.0-35.9, adult; E04.1 Nontoxic single thyroid nodule; E78.5 Hyperlipidemia, unspecified; Z79.82 Long term (current) use of aspirin
CPT/HCPCS: 1NSP; 36415; 82436; 84481; 86376; 86800; 93005; 93010; 93306; 96374; 96375; 99291; J1644

== ENCOUNTER 2017-12-01 14:19 | Inpatient (IN) | payer OTHER ==
[~2017-12-01] VITALS: Ht 162.6 cm; Wt 88.0 kg
[~2017-12-01 14:19] MED LIST: ASPIRIN EC81 M1 PO; DILTIAZEM ER120 M2 PO; EDARBI80 M1 PO; ELIQUIS5 M1 PO; HYDRALAZINE HCL25 M1 PO; HYDROCHLOROTHIA50 M1 PO; METOPROLOL TART50 M1 PO; MULTI-DAY VITA1 EACH PO; SPIRONOLACTONE25 M1 PO; SYNTHROID25 MCG PO; ZETIA10 M1 PO
[2017-12-01 14:44] LABS: ABSOLUTE BASOPHIL COUNT 0 /CUMM (0.0-0.2); ABSOLUTE EOSINOPHIL COUNT 0 /CUMM (0.0-0.7); ABSOLUTE GRANULOCYTE CT 9.2 /CUMM (1.4-6.5); ABSOLUTE LYMPH COUNT 1.4 /CUMM (1.2-3.4); ABSOLUTE MONOCYTE COUNT 0.8 /CUMM (0.10-0.60); BASOPHIL % 0.3 % (0.0-2.0); EOSINOPHIL % 0 % (0-5); GRANULOCYTE % 80.3 % (42.2-75.2); HEMATOCRIT 42.5 % (37-47); MEAN CORPUSCULAR HGB 27.3 PG (27.0-31.0); MEAN CORPUSCULAR HGB CONC 33.1 G/DL (33.0-37.0); MEAN CORPUSCULAR VOLUME 82.3 FL (81.0-99.0); PLATELET COUNT 249 /CUMM (130-400); RBC DISTRIBUTION WIDTH 14.2 % (11.5-14.5); RED BLOOD CELL CT 5.17 /CUMM (4.20-5.40); WHITE BLOOD CELL COUNT 11.5 /CUMM (4.8-10.8)
--- NOTE | 2017-12-01 15:13 | ED DYSPNEA/ASTHMA COMPLAINT ---
History of Present Illness General Chief Complaint: Dyspnea (COPD, CHF, Other) Stated Complaint: SOB SWELLING IN EXTREMITIES NOTED Source: patient, family, old records Exam Limitations: no limitations Vital Signs & Intake/Output Vital Signs & Intake/Output Vital Signs Date Time Temp Pulse Resp B/P B/P Pulse O2 O2 Flow FiO2 Mean Ox Delivery Rate 12/02 0940 65 144/70 12/02 0940 65 144/70 12/02 0638 97.8 100 20 144/70 97 Room Air 12/02 0000 96 Nasal 2.0L Cannula 12/01 2201 97.4 84 20 154/84 96 12/01 1916 110 152/76 12/01 1914 110 152/76 12/01 1816 Room Air 12/01 1810 97.5 113 26 168/90 95 12/01 1800 175/103 12/01 1609 217/95 12/01 1538 226/108 12/01 1456 99.1 99 23 206/113 94 Room Air ED Intake and Output 12/02 0000 12/01 1200 Intake Total 450 Output Total 1600 Balance -1150 Intake, Oral 450 Output, Urine 1600 Patient 90.945 kg Weight Weight Bed scale Measurement Method Allergies Coded Allergies: No Known Allergies (09/08/16) Reconcile Medications Apixaban (Eliquis) 5 MG TABLET 1 TAB PO BID AFIB Azilsartan Medoxomil (Edarbi) 80 MG TABLET 1 TAB PO DAILY HEART (Reported) Diltiazem Cd (Diltiazem ER) 120 MG CAP.ER.DEG 1 TAB PO DAILY AFIB Ezetimibe (Zetia) 10 MG TABLET 1 TAB PO DAILY CHOLESTEROL (Reported) Furosemide 20 MG TABLET 2 TAB PO Q48 WATER RETENTION (Reported) Furosemide 20 MG TABLET 1 TAB PO Q48 WATER RETENTION (Reported) Levothyroxine Sodium 75 MCG TABLET 1 TAB PO DAILY AC THYROID (Reported) Metoprolol Tartrate 50 MG TABLET 1 TAB PO BID HEART/BP (Reported) Triage Note: PT PRESENTS TO ED FOR "NOT FEELING GOOD" SINCE LAST PM. PT REPORTS INC SWELLING TO BILATERAL LOWER EXT (3+ PITTING EDEMA TO R AND 4+ PITTING EDEMA TO L). PT C/O DEC APPETITE, "LOTS OF BELCHING" AND SOB WITH MOVEMENT. TAKEN TO EKG [place] ON ARRIVAL. DENIES CP. Triage Nurses Notes Reviewed? yes HPI: Patient is a 87 year old female with PMH of A-fib, hypothryoidism, HTN who presents to the ER with dyspnea on exertion x 1 day. Patient states she has been having edema in the lower extremities which has worsened over the past two days, bloating with loss of appetitie since yesterday, and had a near syncopal episode this morning. She states the near syncopal episode occured when she was sitting on the couch and began to feel dizzy and lightheaded. Patient denies CP, previous episoides of dizziness/lightheadedness or pre syncoapl/syncopal episodes. Patient had previously been treated for plueral effusion and a thorocentesis was done. During this time her Lasix dose was adjusted and she was told that this may occur again. She states she has been compliant with all of her medications and no changes in her diet have been made. Past History Travel History Traveled to [place] past 21 day No Medical History Any Pertinent Medical History? see below for history Neurological: NONE EENT: NONE Cardiovascular: AFIB, hypertension, hyperlipidemia Respiratory: THORACENTESIS Gastrointestinal: NONE Hepatic: NONE Renal: NONE Musculoskeletal: NONE Psychiatric: NONE Endocrine: thyroid nodules History of MRSA: No History of VRE: No History of CDIFF: No Surgical History Surgical History: non-contributory Psychosocial History Who do you live with Son Services at Home None What is your primary language Iranian Tobacco Use: Never used Family History Hx Contributory? No Review of Systems Review of Systems Constitutional: Reports: no symptoms. EENTM: Reports: no symptoms. Respiratory: Reports: no symptoms. Cardiovascular: Reports: no symptoms. GI: Reports: no symptoms. Genitourinary: Reports: no symptoms. Musculoskeletal: Reports: no symptoms. Skin: Reports: no symptoms. Neurological/Psychological: Reports: no symptoms. Hematologic/Endocrine: Reports: no symptoms. Immunologic/Allergic: Reports: no symptoms. All Other Systems: Reviewed and Negative Physical Exam Physical Exam General Appearance: well developed/nourished, no apparent distress Head: atraumatic, normal appearance Eyes: Bilateral: normal appearance. Ears, Nose, Throat: hearing grossly normal Neck: normal inspection, supple, full range of motion Respiratory: CRACKLES ON THE RIGHT, ABSENT BREATH SOUNDS ON THE LEFT Cardiovascular: IRREGULAR, NO MURMURS Gastrointestinal: soft, non-tender Extremities: 3+ EDEMA B/L LE TO THIGHS Neurologic/Psych: awake, alert, oriented x 3, normal mood/affect Skin: intact, normal color, warm/dry Core Measures ACS in differential dx? No CVA/TIA Diagnosis No Sepsis Present: No Sepsis Focused Exam Completed? No Progress Differential Diagnosis: costochondritis, CHF, COPD Plan of Care: Orders Procedure Date/time Status PROTHROMBIN TIME 12/03 0600 Active XRY-CHEST XRAY, TWO VIEWS 12/02 0600 Active CBC WITHOUT DIFFERENTIAL 12/02 0600 Complete BASIC ELECTROLYTES PLUS BUN&CR 12/02 0600 Complete TROPONIN LEVEL 12/02 0230 Complete EKG 12/02 0230 Active Heart Healthy Diet 12/01 D Active TROPONIN LEVEL 12/01 1930 Complete EKG 12/01 1930 Active CULTURE,URINE 12/01 1921 Active ECHOCARDIOGRAM 12/01 1836 Active Pathway - chart 12/01 1803 Active House Staff 12/01 1803 Active Patient Data 12/01 1803 Active Weight 12/01 1803 Active Teach/Educate 12/01 180 Active Pain Treatment and Response 12/01 1803 Active Nutritional Intake, Monitor 12/01 1803 Active Isolation 12/01 1803 Active Patient Care Conference 12/01 1803 Active Activity/Ambulation 12/01 1803 Active Code Status 12/01 1803 Active Intake & Output 12/01 1749 Active Patient Data 12/01 1605 Active ED Holding Orders 12/01 1559 Active Admit to inpatient 12/01 1559 Active Vital Signs 12/01 1559 Active URINALYSIS 12/01 1423 Complete TROPONIN LEVEL 12/01 1423 Complete COMPREHENSIVE METABOLIC PANEL 12/01 1423 Complete CBC WITHOUT DIFFERENTIAL 12/01 1423 Complete B-TYPE NATRIURETIC PEP (BNP) 12/01 1423 Complete EKG 12/01 1420 Active VTE Mechanical Prophylaxis 12/01 UNK Active Telemetry/Cloak Room Attendant 12/01 UNK Active [place], Insertion/Removal/Asses 12/01 UNK Active Current Medications Sig/Rayne Start time Last Medication Dose Stop Time Status Admin Diltiazem HCl 120 MG DAILY 12/02 0900 AC 12/02 (Cardizem CD) 0940 Levothyroxine Sodium 0.075 MG DAILY AC 12/02 0700 AC 12/02 (Synthroid) 0646 Metoprolol Tartrate 50 MG BID 12/01 2100 AC 12/02 (Lopressor) 0940 Acetaminophen 650 MG Q6P PRN 07/27 1815 AC (Tylenol) Acetaminophen 1,000 MG Q6P PRN 12/01 1814 AC (Ofirmev) Morphine Sulfate 1 MG Q4P PRN 12/01 1814 AC (MORPHINE SULFATE) Furosemide 40 MG 7:30 AM, & 4:30 PM 12/01 1800 AC 12/02 (Lasix) 0652 Losartan Potassium 50 MG DAILY 12/01 1800 AC 12/02 (Cozaar) 0940 Ezetimibe 10 MG DAILY 12/01 1759 AC 12/02 (Zetia) 0940 Laboratory Tests 12/02/17 0610: Anion Gap 12, Estimated GFR 59 L, BUN/Creatinine Ratio 24.4, CBC w Diff NO MAN DIFF REQ, RBC 4.84, MCV 84.1, MCH 27.5, MCHC 32.8 L, RDW 14.2, MPV 8.9, Gran % 77.2 H, Lymphocytes % 13.6 L, Monocytes % 8.4, Eosinophils % 0.5, Basophils % 0.3, Absolute Granulocytes 7.1 H, Absolute Lymphocytes 1.3, Absolute Monocytes 0.8 H, Absolute Eosinophils 0.1, Absolute Basophils 0 12/02/17 0245: Troponin I 0.01 12/01/17 1920: Troponin I < 0.01 12/01/17 1600: Urine Color YEL, Urine Clarity CLEAR, Urine pH 6.5, Ur Specific [place] 1.015, Urine Protein NEG, Urine Ketones NEG, Urine Nitrite NEG, Urine Bilirubin NEG, Urine Urobilinogen 1.0, Ur Leukocyte Esterase NEG, Ur Microscopic SEDIMENT EXAMINED, Urine RBC 1-3, Ur Epithelial Cells FEW, Urine Bacteria FEW H, Urine Hemoglobin TRACE-INTACT, Urine Glucose NEG 12/01/17 1437: Anion Gap 13, Estimated GFR 52 L, BUN/Creatinine Ratio 24.0, Glucose 135 H, Calcium 9.3, Total Bilirubin 1.3, AST 30, ALT 36, Alkaline Phosphatase 115, Troponin I < 0.01, Xuw-Q-Twpwxrzibiu Pept 4210 H, Total Protein 6.8, Albumin 3.8, Globulin 3.0, Albumin/Globulin Ratio 1.3, CBC w Diff NO MAN DIFF REQ, RBC 5.17, MCV 82.3, MCH 27.3, MCHC 33.1, RDW 14.2, MPV 8.0, Gran % 80.3 H, Lymphocytes % 12.2 L, Monocytes % 7.2, Eosinophils % 0, Basophils % 0.3, Absolute Granulocytes 9.2 H, Absolute Lymphocytes 1.4, Absolute Monocytes 0.8 H, Absolute Eosinophils 0, Absolute Basophils 0 Microbiology 12/01 1921 URINE ROUT: Urine Culture - RES Diagnostic Imaging: Viewed by Me: Radiology Read. Discussed w/RAD: Radiology Read. Radiology Impression: PATIENT: ZANDER DUKE PRESENT AGE: 87 PATIENT ACCOUNT NO: [id number] : 29 LOCATION: [facility] ORDERING PHYSICIAN: Abdelrahman ROGERS SERVICE DATE: 12/01/17 EXAM TYPE: RAD - XRY- CHEST XRAY, TWO VIEWS EXAMINATION: XR CHEST CLINICAL INFORMATION: Lower extremity edema. COMPARISON: 09/08/2016 and 08/21/2017 TECHNIQUE: 2 views of the chest were obtained. FINDINGS: Cardiomegaly. There appears to be wall calcification of the bronchial tree - a relatively common finding in elderly patients. This likely accounts for the peribronchial interstitial prominence. No cephalization of pulmonary venous flow or peripheral interstitial thickening. Moderate left pleural effusion producing compressive atelectasis at the left base is new compared to 08/21/2017. Minimal linear, hazy opacity suggestive of atelectasis at the right lung base. Atherosclerotic calcification of the aorta. No acute skeletal abnormality. IMPRESSION: 1. Cardiomegaly without cephalization of pulmonary venous flow or interstitial edema. 2. Moderate left pleural effusion, which is new compared to 08/21/2017, produces compressive atelectasis in the left base. No focal consolidation. DICTATED BY: Richar Johnson MD DATE/ TIME DICTATED:12/01/171506 MENTAL HYGIENE CONSULTANT:MARIELENA DATE/TIME TRANSCRIBED: 12/01/171506 CONFIDENTIAL, DO NOT COPY WITHOUT APPROPRIATE AUTHORIZATION. < Electronically signed in Other Vendor System> SIGNED BY: Richar Johnson MD 12/01/17 4705 Initial ED EKG: AFIB Departure Departure Disposition: STILL A PATIENT Condition: Stable Clinical Impression Primary Impression: Acute on chronic systolic CHF (congestive heart failure) Secondary Impressions: Dyspnea on exertion, Recurrent left pleural effusion Referrals: Sheila SINGLETON,Javier Tamez (PCP/Family) Departure Forms: Customer Survey General Discharge Information Admission Note Spoke With: Katia Buchanan MD Documentation of Exam: Documentation of any treatments & extenuating circumstances including Concerns Regarding Discharge (functional status, medication knowledge or non-compliance, living conditions, etc.) that warrant an admission rather than observation: ACUTE CHF WITH OVERT EDEMA, LARGE PLEURAL EFFUSION THAT WILL REQUIRE THORACENTESIS, IV DIURESIS, CARDIOLOGY, WILL ADMIT TO MEDICINE Critical Care Note Critical Care Note Critical Care Time: non-applicable
[2017-12-01] MEDS ORDERED: LEVOTHYROXINE75 MCG PO (15:20)
[2017-12-01] MEDS ORDERED: FUROSEMIDE20 M1 PO (15:21)
--- NOTE | 2017-12-01 16:08 | History & Physical ---
Melania العراقي 12/01/17 1607: General Information and HPI MD Statement: I have seen and personally examined ZANDER DUKE and documented this H&P. The patient is a 87 year old F who presented with a patient stated chief complaint of shortness of breath. Source of Information: patient, family History of Present Illness: Patient is an 86-year-old female with past medical history of atrial fibrillation diagnosed in September 2016 on Eliquis and Cardizem, hypertension, hyperlipidemia, heart failure with preserved ejection fraction (last echo September 2016 EF greater than 55%, septal motion consistent with left bundle branch block ) and hypothyroidism. Patient previously admitted in August 2017 where a left- sided pleural effusion was found and thoracocentesis drained 1.2 L of fluid that was negative for malignancy. Patient is presenting on this admission for a presyncopal episode, 3 weeks of shortness of breath and increased ankle swelling for 3 days. Patient's history was aided by her daughter who is present on assessment. The daughter stated that the patient almost passed out and turned pale at home with no loss of consciousness and sat down feeling dizzy. No headaches, chest pain, slurred speech or focal neurological deficits noted. In addition patient has had increased shortness of breath breath for the past 3 weeks and is not on home oxygen. Patient has noticed increased ankle swelling right greater than left beginning on Monday taking it difficult for her to ambulate. The daughter and patient has noticed that she has decreased urination at home his appetite for the past 2 days has been significantly compliant with all medications this morning. Patient notes that when she lays back she feels palpitation and prefers to lay on one side noting that she is able to breathe better laying on her right side. Patient lives in a split-level at home and is taken care of by her son. Patient uses a cane and walker at baseline. Patient's PCP is Dr. Sosa. Patient's obstetrics specialist is Dr. 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 Allergies/Medications Allergies: Coded Allergies: No Known Allergies (09/08/16) Home Med list Apixaban (Eliquis) 5 MG TABLET 1 TAB PO BID AFIB Azilsartan Medoxomil (Edarbi) 80 MG TABLET 1 TAB PO DAILY HEART (Reported) Diltiazem Cd (Diltiazem ER) 120 MG CAP.ER.DEG 1 TAB PO DAILY AFIB Ezetimibe (Zetia) 10 MG TABLET 1 TAB PO DAILY CHOLESTEROL (Reported) Furosemide 20 MG TABLET 2 TAB PO Q48 WATER RETENTION (Reported) Furosemide 20 MG TABLET 1 TAB PO Q48 WATER RETENTION (Reported) Levothyroxine Sodium 75 MCG TABLET 1 TAB PO DAILY AC THYROID (Reported) Metoprolol Tartrate 50 MG TABLET 1 TAB PO BID HEART/BP (Reported) Past History Travel History Traveled to [place] past 21 day No Medical History Neurological: NONE EENT: NONE Cardiovascular: AFIB, hypertension, hyperlipidemia Respiratory: THORACENTESIS Gastrointestinal: NONE Hepatic: NONE Renal: NONE Musculoskeletal: NONE Psychiatric: NONE Endocrine: thyroid nodules History of MRSA: No History of VRE: No History of CDIFF: No Surgical History Surgical History: non-contributory Past Family/Social History Psychosocial History Who Do You Live With? self Services at Home: None Primary Language: Chinese Functional Ability ADLs Independent: dressing, eating, toileting, bathing. Ambulation: independent IADLs Independent: shopping, housework, finances, food prep, telephone, transportation , medication admin. Review of Systems Review of Systems Constitutional: Denies: see HPI. Exam & Diagnostic Data Last 24 Hrs of Vital Signs/I&O Vital Signs Date Time Temp Pulse Resp B/P B/P Pulse O2 O2 Flow FiO2 Mean Ox Delivery Rate 12/01 1800 175/103 12/01 1609 217/95 12/01 1538 226/108 12/01 1456 99.1 99 23 206/113 94 Room Air Intake & Output 12/01 1600 12/01 0800 12/01 0000 Intake Total Output Total Balance Patient 200 lb Weight Weight Reported by Patient Measurement Method Physical Exam General Appearance Alert, Oriented X3, Cooperative HEENT PERRLA, EOMI, Mucous Membr. moist/pink Neck No JVD Cardiovascular Normal S1, Normal S2, irregular rythm Lungs decreased breath sounds in left lower lung base, clear at the apices Abdomen Normal Bowel Sounds, Soft, No Tenderness Neurological Normal Speech, Strength at 5/5 X4 Ext, Normal Tone, Sensation Intact, Reflexes 2+ Extremities No Clubbing, No Cyanosis, +3 bilateral lower extremity; no wheeping/ discharge; nontender Vascular Normal Pulses, Pulses Symmetrical Last 24 Hrs of Labs/Jomar: Laboratory Tests 12/01/17 1600: Urine Color YEL, Urine Clarity CLEAR, Urine pH 6.5, Ur Specific [place] 1.015, Urine Protein NEG, Urine Ketones NEG, Urine Nitrite NEG, Urine Bilirubin NEG, Urine Urobilinogen 1.0, Ur Leukocyte Esterase NEG, Ur Microscopic SEDIMENT EXAMINED, Urine RBC 1-3, Ur Epithelial Cells FEW, Urine Bacteria FEW H, Urine Hemoglobin TRACE-INTACT, Urine Glucose NEG 12/01/17 1437: Anion Gap 13, Estimated GFR 52 L, BUN/Creatinine Ratio 24.0, Glucose 135 H, Calcium 9.3, Total Bilirubin 1.3, AST 30, ALT 36, Alkaline Phosphatase 115, Troponin I < 0.01, Nli-T-Ogqsszwjrlc Pept 4210 H, Total Protein 6.8, Albumin 3.8, Globulin 3.0, Albumin/Globulin Ratio 1.3, CBC w Diff NO MAN DIFF REQ, RBC 5.17, MCV 82.3, MCH 27.3, MCHC 33.1, RDW 14.2, MPV 8.0, Gran % 80.3 H, Lymphocytes % 12.2 L, Monocytes % 7.2, Eosinophils % 0, Basophils % 0.3, Absolute Granulocytes 9.2 H, Absolute Lymphocytes 1.4, Absolute Monocytes 0.8 H, Absolute Eosinophils 0, Absolute Basophils 0 Diagnostic Data EKG Results Atrial fibrillation LBBB Ventricular Rate 69-132 Assessment/Plan Assessment: Patient is a 86 year old female with past medical history of hypertension, atrial fibrillation diagnosed in 2017 on Eliquis and cardizem, CHF diastolic dysfunction (2017 ECHO 55%), chronic left bundle branch block, hypothyroidism, previous left pleural effusion thoracocentesis August 2017 negative for malignancy. Patient presented to ED for presyncopal episode, increasing shortness of breath and increased lower extremity edema. Blood pressure in ER found to be 206/113. Patient given Hydralazine 10 IV, Lasix 40 IV X1. Patients pro BNP elevated at 4210. EMERGENCY DEPARTMENT: Admission vitals Temperature 99.1, pulse rate 99, respiratory rate 23, blood pressure 206/113, saturating 94 at room air EKG: Atrial fibrillation, Left bundle branch block Troponin: 0.01 Admission labs WBC 11.5, hemoglobin 14.1, platelet count 249, sodium 138, potassium 4, BUN 24, glucose 135, calcium 9.3, total bilirubin 1.3, troponin 0 0.01, proBNP is 4210 Urine analysis pending Chest x-ray 1. Cardiomegaly without cephalization of pulmonary venous flow or interstitial edema. 2. Moderate left pleural effusion, which is new compared to 08/21/2017, produces compressive atelectasis in the left base. No focal consolidation. Echocardiogram September 2016 Ejection fraction 55% with abnormal septal motion consistent with left bundle branch block Mild to moderate tricuspid regurgitation Home medication Eliquis 5 mg twice daily Edarbi 80 mg daily Diltiazem CD 120 Ezetimibe 10 mg Lasix 20 every 48 1 or 2 tabs Metoprolol 50 twice daily Levothyroxine 75 mcg daily PROBLEM LIST: 1. Acute on chronic diastolic CHF with moderate left pleural effusion 2. Atrial Fibrillation 3. Hypertensive Urgency 4. Hypothyroidism 5. Hyperlipidemia Acute on chronic diastolic congestive heart failure with moderate left pleural effusion * Admit her in telemetry * IV diuresis * ECHO * CXR in AM for pleural effusion/possible thoracocentesis * Follow-up troponins and EKG. * Strict I's and O's * Daily weights Atrial fibrillation * Continue Eliquis, metoprolol and Cardizem. * If patient needs thoracentesis had Eliquis has to be held. Hypertensive urgency * Patient was given 10 mg of IV hydralazine in the ED. * Continue metoprolol and losartan. Hypothyroidism * Continue levothyroxine Hyperlipidemia * Continue ezetimibe Code Status: Full Code DVT PPx: Heparin SC Diet: Heart Healthy As Ranked By This Provider Problem List: 1. Hypothyroid 2. Acute on chronic systolic CHF (congestive heart failure) 3. CHF (congestive heart failure) 4. Dyspnea on exertion 5. Recurrent left pleural effusion Core Measures/Misc (01/22) Acute Coronary Syndrome ACS Diagnosis: No Congestive Heart Failure Congestive Heart Failure Diagnosis Yes Last Known EF % 55 Cerebrovascular Accident CVA/TIA Diagnosis: No VTE (View Protocol) VTE Risk Factors Age>40 No Mechanical VTE Prophylaxis d/t N/A MechProphylax Ordered No VTE Pharm Prophylaxis d/t NA PharmProphylax ordered Sepsis (View protocol) Sepsis Present: No If YES complete Sepsis Event Note If YES complete Sepsis Event Note Katia Buchanan 12/01/17 1608: Core Measures/Misc (01/22) Sepsis (View protocol) If YES complete Sepsis Event Note If YES complete Sepsis Event Note Attending MD Review Statement Attending Statement Attending MD Statement: examined this patient, discuss w/resident/PA/NATURALIST, agreed w/resident/PA/NATURALIST, discussed with family, reviewed EMR data (avail), discussed with nursing, discussed with case mgmt, reviewed images, amended to note Attending Assessment/Plan: 87 o/f with pmh of hypertension, paroxysmal afib, hypothyroidism comes with shortness of breath on exertion and acclerated hypertension. Denies chest pain, dizziness, diaphoresis and bluriness of vision. Patient BP on arrival 220s systolic. ER gave iv lasix and iv hydralazine. Patient bnp 4000s is increased as compared to previous. Also chest xray suggestive of pleural effusion. Patient will be admitted to inpatient medical services for accelerated hypertension and acute on chronic CHF exacerbation with preserved EF. Obtain serial cardiac enzymes, cardiology consult. iv lasix 40 mg bid, monitor I/O, daily weights. Resume home meds of eliquis and rate control agents for afib. Hold on IR guided drainage of pleural effuison. Patient has thoracentesis in august negative for malignancy. Discuss with cardiology if Thoracocentesis needed. gi/dvt prophyalxis full code. Gume SINGLETON,[facility] 12/01/17 1655: Core Measures/Misc (01/22) Sepsis (View protocol) If YES complete Sepsis Event Note If YES complete Sepsis Event Note Resident Review Statement Other Findings: Ms. Duke is a pleasant 86 year old female with PMH thyroid nodule, HTN and HLD who presents with chief complaint of shortness of breath for the past 3 weeks. Patient was in usual state of health until 3 weeks ago, following which she had increasing bilateral pedal edema right more than left and difficulty in breathing. At baseline patient does not use oxygen at home. She also gives complain of palpitations [feeling heartbeat in the back] and dyspnea on exertion, orthopnea for the past 3 weeks. She denies chest pain, chest discomfort, fever, chills, nausea, vomiting, headache, abdominal pain, diarrhea, vomiting, hematuria. Today before coming to the hospitaL she was walking in her kitchen and felt dizzy and thought that she is going to fall and hence she sat down. She was there to sitting in the kitchen for 3-4 hours and then decided to come to the hospital. She lives with her son. She takes her own pills. She endorses being compliant with medications and food. Her last visit to her obstetrics specialist was 3 weeks ago. At baseline she uses cane and walker. Admission vitals Temperature 99.1, pulse rate 99, respiratory rate 23, blood pressure 206/113, saturating 94 at room air Admission labs WBC 11.5, hemoglobin 14.1, platelet count 249, sodium 138, potassium 4, BUN 24, glucose 135, calcium 9.3, total bilirubin 1.3, troponin 0 0.01, proBNP is 4210 Urine analysis pending Chest x-ray 1. Cardiomegaly without cephalization of pulmonary venous flow or interstitial edema. 2. Moderate left pleural effusion, which is new compared to 08/21/2017, produces compressive atelectasis in the left base. No focal consolidation. Echocardiogram September 2016 Ejection fraction 55% with abnormal septal motion consistent with left bundle branch block Mild to moderate tricuspid regurgitation Home medication Eliquis 5 mg twice daily Edarbi 80 mg daily Diltiazem CD 120 Ezetimibe 10 mg Lasix 20 every 48 1 or 2 tabs Metoprolol 50 twice daily Levothyroxine 75 mcg daily ED treatment Lasix 40 IV once Hydralazine 10 IV once On examination Patient was sitting in her wheelchair. She is not on any oxygen. No acute distress. She said she is feeling weak and would like to go to the telemetry soon. Cardiovascular [id number] is irregular no murmur No JVD No carotid bruit Respiratory system-bilateral normal vesicular breath sounds Abdomen-obese no tenderness Extremity-bilateral pulses felt. Bilateral pedal edema up to the level of medication. No warmth or redness. Assessment and plan 1. Acute on chronic diastolic congestive heart failure with moderate left pleural effusion We will admit her in telemetry and diurese her with IV Lasix. We will get an echocardiogram. We will get repeat chest x-ray in the morning to look for the pleural effusion. If patient has significant shortness of breath and her symptoms does not improve she might need thoracentesis. Follow-up troponins and EKG. Strict I's and O's Daily weights 2D echocardiogram 2. Atrial fibrillation Continue Eliquis, metoprolol and Cardizem. If patient needs thoracentesis had Eliquis has to be held. 3. Hypertensive urgency Patient was given 10 mg of IV hydralazine in the ED. At home patient is on metoprolol and Edarbi. We will continue metoprolol and losartan. 4. Hypothyroidism Continue levothyroxine 5. Hyperlipidemia Continue ezetimibe Diet-heart healthy diet DVT prophylaxis-heparin subcu Diet-heart healthy diet DVT prophylaxis-heparin subcu
[2017-12-01 18:10] VITALS: BP 168/90
[2017-12-01 22:01] VITALS: BP 154/84
[2017-12-02 06:38] VITALS: BP 144/70
--- NOTE | 2017-12-02 08:24 | PN- Housestaff ---
Cristian Sotelo 12/02/17 0824: Subjective Follow-up For: Acute on chronic diastolic CHF Pleural effusion Atrial Fibrillation Hypertensive Urgency Hypothyroidism Hyperlipidemia Subjective: Patient seen sitting comfortably at the bedside, in no acute distress. She denies chest pain, still reports shortness of breath with exertion, but is on the nasal cannula and tolerating well. Denies cough. She also denies fever or palpitations. Patient is complaining of swelling in bilateral legs, but is not acutely pain as a result of this. Review of Systems Constitutional: Denies: chills, fever, weakness. Objective Last 24 Hrs of Vital Signs/I&O Vital Signs Date Time Temp Pulse Resp B/P B/P Pulse O2 O2 Flow FiO2 Mean Ox Delivery Rate 12/02 0638 97.8 100 20 144/70 97 Room Air 12/02 0000 96 Nasal 2.0L Cannula 12/011 97.4 84 20 154/84 96 12/02 1915 110 152/76 12/01 1914 110 152/76 12/01 1816 Room Air 12/01 1810 97.5 113 26 168/90 95 12/01 1800 175/103 12/01 1609 217/95 12/01 1538 226/108 12/01 1456 99.1 99 23 206/113 94 Room Air Intake & Output 12/02 1600 12/02 0800 12/02 0000 Intake Total 50 450 Output Total 420 1600 Balance -370 -1150 Intake, Oral 50 450 Output, Urine 420 1600 Patient 90.066 kg 90.945 kg Weight Weight Bed scale Bed scale Measurement Method Physical Exam General Appearance: Alert, Oriented X3, Cooperative, No Acute Distress HEENT: Atraumatic, PERRLA, EOMI Neck: Supple, No JVD Cardiovascular: Regular Rate, Normal S1, Normal S2 Lungs: Distant breath sounds Abdomen: Normal Bowel Sounds, Soft, No Tenderness Neurological: Normal Speech Current Medications: Current Medications Sig/Rayne Start time Last Medication Dose Route Stop Time Status Admin Acetaminophen 650 MG Q6P PRN 12/01 1814 AC PO Acetaminophen 1,000 MG Q6P PRN 12/01 1814 AC IV Apixaban 5 MG BID 12/01 2100 DC 12/01 PO 1914 Diltiazem HCl 120 MG DAILY 12/02 0900 AC PO Ezetimibe 10 MG DAILY 12/01 1759 AC 12/01 PO 1914 Furosemide 40 MG 7:30 AM, & 4:30 PM 12/01 1800 AC 12/02 IV 0652 Furosemide 0 .STK-MED ONE 12/01 1531 DC IV Furosemide 40 MG ONCE ONE 12/01 1530 DC 12/01 IV 12/01 1531 1538 Hydralazine HCl 10 MG ONCE ONE 12/01 1530 DC 12/01 IV 12/01 1531 1538 Hydralazine HCl 0 .STK-MED ONE 12/01 1530 DC .ROUTE Levothyroxine Sodium 0.075 MG DAILY AC 12/02 0700 AC 12/02 PO 0646 Losartan Potassium 50 MG DAILY 12/01 1800 AC 12/01 PO 191 Metoprolol Tartrate 50 MG BID 12/01 2100 AC 12/01 PO 191 Morphine Sulfate 1 MG Q4P PRN 12/01 1815 AC IV Last 24 Hrs of Lab/Jomar Results Last 24 Hrs of Labs/Mics: Laboratory Tests 12/02/17 0610: Sodium Pending, Potassium Pending, Chloride Pending, Carbon Dioxide Pending, Anion Gap Pending, BUN Pending, Creatinine Pending, BUN/Creatinine Ratio Pending , CBC w Diff Pending, WBC Pending, RBC Pending, Hgb Pending, Hct Pending, MCV Pending, MCH Pending, MCHC Pending, RDW Pending, Plt Count Pending, MPV Pending 12/02/17 0245: Troponin I 0.01 12/01/17 1920: Troponin I < 0.01 12/01/17 1600: Urine Color YEL, Urine Clarity CLEAR, Urine pH 6.5, Ur Specific [place] 1.015, Urine Protein NEG, Urine Ketones NEG, Urine Nitrite NEG, Urine Bilirubin NEG, Urine Urobilinogen 1.0, Ur Leukocyte Esterase NEG, Ur Microscopic SEDIMENT EXAMINED, Urine RBC 1-3, Ur Epithelial Cells FEW, Urine Bacteria FEW H, Urine Hemoglobin TRACE-INTACT, Urine Glucose NEG 12/01/17 1437: Anion Gap 13, Estimated GFR 52 L, BUN/Creatinine Ratio 24.0, Glucose 135 H, Calcium 9.3, Total Bilirubin 1.3, AST 30, ALT 36, Alkaline Phosphatase 115, Troponin I < 0.01, [id number] Pept 4210 H, Total Protein 6.8, Albumin 3.8, Globulin 3.0, Albumin/Globulin Ratio 1.3, CBC w Diff NO MAN DIFF REQ, RBC 5.17, MCV 82.3, MCH 27.3, MCHC 33.1, RDW 14.2, MPV 8.0, Gran % 80.3 H, Lymphocytes % 12.2 L, Monocytes % 7.2, Eosinophils % 0, Basophils % 0.3, Absolute Granulocytes 9.2 H, Absolute Lymphocytes 1.4, Absolute Monocytes 0.8 H, Absolute Eosinophils 0, Absolute Basophils 0 Microbiology 12/01 1921 URINE ROUT: Urine Culture - RECD Assessment/Plan Assessment: Patient is a 86 year old female with past medical history of hypertension, atrial fibrillation diagnosed in 2017 on Eliquis and cardizem, CHF diastolic dysfunction (2017 ECHO 55%), chronic left bundle branch block, hypothyroidism, previous left pleural effusion thoracocentesis August 2017 negative for malignancy. Patient presented to ED for presyncopal episode, increasing shortness of breath and increased lower extremity edema. Blood pressure in ER found to be 206/113. Patient given Hydralazine 10 IV, Lasix 40 IV X1. Patients pro BNP elevated at 4210. This morning blood pressure was down to 144/70, currently under control with losartan and metoprolol. Fluid balance of -1520 through noon today on the IV Lasix. Repeat chest x-ray shows moderate left pleural effusion with left base consolidation. Problems: 1. Acute on chronic diastolic CHF with moderate left pleural effusion 2. Atrial Fibrillation 3. Hypertensive Urgency 4. Hypothyroidism 5. Hyperlipidemia Plan: * Continue Lasix IV * Follow-up ECHO * Possibly for thoracentesis on Monday * Strict I's and O's * Daily weights Full Code DVT PPx: Heparin SC Diet: Heart Healthy CBC & BEP for tomorrow Problem List: 1. Dyspnea on exertion 2. Recurrent left pleural effusion 3. Acute on chronic systolic CHF (congestive heart failure) Pain Ratin Pain Location: None Pain Goal: Pain 4 or less Pain Plan: Per pathway Tomorrow's Labs & Rationales: CBC & BEP Dewayne,Katia 12/02/17 1301: Attending MD Review Statement Attending Statement Attending MD Statement: examined this patient, discuss w/resident/PA/[employer], agreed w/resident/PA/[employer], discussed with family, reviewed EMR data (avail), discussed with nursing, discussed with case mgmt, reviewed images, amended to note Attending Assessment/Plan: 87 o/f with pmh of hypertension, paroxysmal afib, hypothyroidism comes with shortness of breath on exertion and acclerated hypertension. No new complaints, feeling better. Vitals bp 144/75 much improved. Patient is admitted to inpatient medical services for accelerated hypertension and acute on chronic CHF exacerbation with preserved EF with improvement wih good urine output. Negative serial cardiac enzymes, cardiology consulted. iv lasix, monitor I/O, daily weights. Resume home meds of eliquis and rate control agents for afib. Continue with negative balance. Hold on IR guided drainage of pleural effuison. Patient has thoracentesis in august negative for malignancy. Follow up with cardiology if Thoracocentesis needed. gi/dvt prophyalxis full code.
[2017-12-02 08:29] LABS: ABSOLUTE BASOPHIL COUNT 0 /CUMM (0.0-0.2); ABSOLUTE EOSINOPHIL COUNT 0.1 /CUMM (0.0-0.7); ABSOLUTE GRANULOCYTE CT 7.1 /CUMM (1.4-6.5); ABSOLUTE LYMPH COUNT 1.3 /CUMM (1.2-3.4); ABSOLUTE MONOCYTE COUNT 0.8 /CUMM (0.10-0.60); BASOPHIL % 0.3 % (0.0-2.0); EOSINOPHIL % 0.5 % (0-5); GRANULOCYTE % 77.2 % (42.2-75.2); HEMATOCRIT 40.7 % (37-47); MEAN CORPUSCULAR HGB 27.5 PG (27.0-31.0); MEAN CORPUSCULAR HGB CONC 32.8 G/DL (33.0-37.0); MEAN CORPUSCULAR VOLUME 84.1 FL (81.0-99.0); MEAN PLATELET VOLUME 8.9 FL (7.4-10.4); PLATELET COUNT 225 /CUMM (130-400); RBC DISTRIBUTION WIDTH 14.2 % (11.5-14.5); RED BLOOD CELL CT 4.84 /CUMM (4.20-5.40); WHITE BLOOD CELL COUNT 9.2 /CUMM (4.8-10.8)
--- NOTE | 2017-12-02 10:41 | Cons- Cardiology ---
Vito Juarez 12/02/17 1031: General Information and HPI Consulting Request Date of Consult: 12/02/17 Requested By: Katia Buchanan MD Reason for Consult: CHF Exacerbation Source of Information: patient Exam Limitations: no limitations History of Present Illness: This is an 86-year-old female with past medical history of A. fib on Eliquis, hypertension, hyperlipidemia, CHF with preserved EF, (last echo July 2017 EF 60 -65%), hypothyroidism. The patient presented to [facility] secondary to increased weakness, lightheadedness. She states over the past 3 weeks she has had progressively worsening dyspnea on exertion, and leg edema right greater than left. The patient states that yesterday she felt as though she was going to pass out and called her daughter who brought her to the emergency room for further evaluation. She denies recent chest pain palpitations orthopnea,pnd, cough hemoptysis. She has been compliant with all of her medications including Eliquis, diltiazem, Lasix which she alternates between 40 mg and 20 mg daily. She does not check her weights at home. In the ER the patient had a chest x-ray that showed a new left pleural effusion. Her history is significant in that she had a thoracentesis performed 3 months ago for similar presentation. Troponins have been negative 3. EKG revealed A. fib at 76 left bundle branch block, no acute ischemic changes. This was unchanged from previous. Currently Zulay is resting in no acute distress she denies shortness of breath chest pain palpitations dizziness lightheadedness to myself. Telemetry reviewed overnight show the patient has been in A. fib 70s-80s. Allergies/Medications Allergies: Coded Allergies: No Known Allergies (09/08/16) Home Med List: Apixaban (Eliquis) 5 MG TABLET 1 TAB PO BID AFIB Azilsartan Medoxomil (Edarbi) 80 MG TABLET 1 TAB PO DAILY HEART (Reported) Diltiazem Cd (Diltiazem ER) 120 MG CAP.ER.DEG 1 TAB PO DAILY AFIB Ezetimibe (Zetia) 10 MG TABLET 1 TAB PO DAILY CHOLESTEROL (Reported) Furosemide 20 MG TABLET 2 TAB PO Q48 WATER RETENTION (Reported) Furosemide 20 MG TABLET 1 TAB PO Q48 WATER RETENTION (Reported) Levothyroxine Sodium 75 MCG TABLET 1 TAB PO DAILY AC THYROID (Reported) Metoprolol Tartrate 50 MG TABLET 1 TAB PO BID HEART/BP (Reported) Current Medications: Current Medications Sig/Rayne Start time Last Medication Dose Route Stop Time Status Admin Acetaminophen 650 MG Q6P PRN 12/01 1814 AC PO Acetaminophen 1,000 MG Q6P PRN 12/01 181 AC IV Apixaban 5 MG BID 12/01 2100 DC 12/01 PO 1915 Diltiazem HCl 120 MG DAILY 12/02 0900 AC 12/02 PO 0940 Ezetimibe 10 MG DAILY 12/01 1759 AC 12/02 PO 0940 Furosemide 40 MG 7:30 AM, & 4:30 PM 12/01 1800 AC 12/02 IV 0652 Furosemide 0 .STK-MED ONE 12/01 1531 DC IV Furosemide 40 MG ONCE ONE 12/01 1530 DC 12/01 IV 12/01 1531 1538 Hydralazine HCl 10 MG ONCE ONE 12/01 1530 DC 12/01 IV 12/01 1531 1538 Hydralazine HCl 0 .STK-MED ONE 12/01 1530 DC .ROUTE Levothyroxine Sodium 0.075 MG DAILY AC 12/02 0700 AC 12/02 PO 0646 Losartan Potassium 50 MG DAILY 12/01 1800 AC 12/02 PO 0940 Metoprolol Tartrate 50 MG BID 12/01 2100 AC 12/02 PO 0940 Morphine Sulfate 1 MG Q4P PRN 12/01 1814 IV Review of Systems Review of Systems: Review of systems: See HPI, All other systems negative. Constitutional, positive fatigue, no chills no fever, no malaise HEENT: no sore throat no congestion, no ear pain Cardiovascular: No chest pain , no palpitation Skin: no rashes, no change in skin Respiratory: Positive dyspnea no cough no sputum no hemoptysis GI: No nausea no vomiting, no diarrhea, no bloating/constipation : No dysuria No hematuria, no frequency Muscle skeletal: Positive joint pain, no back pain, no neck pain, Neurologic: , no headache Psych: No stress Heme/endocrine: No bruising Immunology: No lymphadenopathy Past History Travel History Traveled to [place] past 21 day No Medical History Blood Transfusion Hx: No Neurological: NONE EENT: NONE Cardiovascular: AFIB, hypertension, hyperlipidemia Respiratory: THORACENTESIS Gastrointestinal: NONE Hepatic: NONE Renal: NONE Musculoskeletal: NONE Psychiatric: NONE Endocrine: hypothyroidism, thyroid nodules Blood Disorders: NONE Cancer(s): NONE BED AND BREAKFAST OPERATOR/Reproductive: NONE Surgical History Surgical History: non-contributory, cataract removal Psychosocial History Where Do You Live? Home Who Do You Live With? self Services at Home: None Primary Language: Malaysian Smoking Status: Never Smoked Functional Ability ADLs Independent: dressing, eating, toileting, bathing. Ambulation: independent IADLs Independent: shopping, housework, finances, food prep, telephone, transportation , medication admin. Exam & Diagnostic Data Vital Signs and I&O Vital Signs Date Time Temp Pulse Resp B/P B/P Pulse O2 O2 Flow FiO2 Mean Ox Delivery Rate 12/02 0940 65 144/70 12/02 0940 65 144/70 12/02 0638 97.8 100 20 144/70 97 Room Air 12/02 0000 96 Nasal 2.0L Cannula 12/01 2201 97.4 84 20 154/84 96 12/01 1916 110 152/76 12/01 1914 110 152/76 12/01 1816 Room Air 12/01 1810 97.5 113 26 168/90 95 12/01 1800 175/103 12/01 1609 217/95 12/01 1538 226/108 12/01 1456 99.1 99 23 206/113 94 Room Air Intake & Output 12/02 1600 12/02 0800 12/02 0000 12/01 1600 12/01 0800 12/01 0000 Intake Total 50 450 Output Total 420 1600 Balance -370 -1150 Intake, Oral 50 450 Output, Urine 420 1600 Patient 199 lb 201 lb 200 lb Weight Weight Bed scale Bed scale Reported by Patient Measurement Method Physical Exam: Well-developed well-nourished person in no acute distress HEENT: HEAD is atraumatic. moist mucous membranes. Neck: Supple, normal range of motion Back: Full range of motion Cardiovascular: irregular rate and rhythm, no murmurs rubs or gallops, no JVD at 45 Respiratory: No respiratory distress. Patient speaking in full complete sentences. Lung sounds diminished at the left base, no wheezing rhonchi rales Abdomen: Soft, no ascites, no hepatojugular reflux Extremity: 2+ edema noted to the right leg, 1+ edema to the left lower extremity Neuro: Alert oriented x3, motor sensory normal, Skin: No appreciable rash on exposed skin, skin is warm and dry. Psych: Mood and affect is normal, memory and judgment is normal. Diagnostic Data CXR Results 1. Cardiomegaly without cephalization of pulmonary venous flow or interstitial edema. 2. Moderate left pleural effusion, which is new compared to 08/21/2017, produces compressive atelectasis in the left base. No focal consolidation. Assessment/Plan Assessment/Plan 86-year-old female with past medical history of A. fib on Eliquis, hypertension, hyperlipidemia, CHF with preserved EF, (last echo July 2017 EF 60-65%), hypothyroidism. Impression: Acute CHF exacerbation Atrial fibrillation History of chronic left bundle branch block History of hypertension History of hyperlipidemia with statin intolerance Hypothyroidism Recommendations: Continue home Eliquis, diltiazem, metoprolol, losartan Would continue to diurese with Lasix 40 mg IV QD Continuous telemetry monitoring, trend BMP The plan was discussed with Dr. Liao. Addendum to follow. Thank you for the opportunity to assist in the patient's care. These do not hesitate to call with any questions. Vito Delgado PA-C [facility] [address] [place] [address], [address] [place] [address] Consult Acknowledgment - Thank you for your consult request. Keshawn SINGLETON,Dwayne 12/02/17 8076: Attending MD Review Statement Attending Sign Off Other Findings: I have personally seen and examined this patient and directed the cardiac plan of care. Agree with diuresis. Continue AC. Keep on telemetry. Fernandez Liao MD [facility] Assessment/Plan Consult Acknowledgment - Thank you for your consult request.
--- NOTE | 2017-12-02 12:21 | RADIOLOGY REPORT ---
EXAMINATION: XR CHEST CLINICAL INFORMATION: Pleural effusion, shortness of breath COMPARISON: 12/01/2017 TECHNIQUE: 2 views of the chest were obtained. FINDINGS: Again seen is a moderate left pleural effusion with associated left base consolidation. There is unchanged prominence of the pulmonary interstitium. Cardiac silhouette remains enlarged although it is not well evaluated in the setting of the left lung and pleural abnormalities. There are degenerative changes of the bilateral shoulders and spine. IMPRESSION: No significant change from prior study.
[2017-12-02 15:29] VITALS: BP 134/80
[2017-12-02 22:20] VITALS: BP 144/72
[2017-12-03 07:08] VITALS: BP 150/80
[2017-12-03 08:46] LABS: PT 22.7 SEC (9.4-12.5)
[2017-12-03 08:47] LABS: ABSOLUTE BASOPHIL COUNT 0 /CUMM (0.0-0.2); ABSOLUTE EOSINOPHIL COUNT 0.1 /CUMM (0.0-0.7); ABSOLUTE GRANULOCYTE CT 5.3 /CUMM (1.4-6.5); ABSOLUTE LYMPH COUNT 1.5 /CUMM (1.2-3.4); ABSOLUTE MONOCYTE COUNT 0.7 /CUMM (0.10-0.60); BASOPHIL % 0.4 % (0.0-2.0); EOSINOPHIL % 1.2 % (0-5); GRANULOCYTE % 69.4 % (42.2-75.2); HEMATOCRIT 40.4 % (37-47); MEAN CORPUSCULAR HGB CONC 33.9 G/DL (33.0-37.0); MEAN CORPUSCULAR VOLUME 82.8 FL (81.0-99.0); MEAN PLATELET VOLUME 8.8 FL (7.4-10.4); PLATELET COUNT 270 /CUMM (130-400); RBC DISTRIBUTION WIDTH 14.1 % (11.5-14.5); RED BLOOD CELL CT 4.88 /CUMM (4.20-5.40); WHITE BLOOD CELL COUNT 7.6 /CUMM (4.8-10.8)
--- NOTE | 2017-12-03 09:00 | PN- Housestaff ---
Nader SINGLETON,Krcorona 12/03/17 0900: Subjective Follow-up For: presyncopal episode, increasing shortness of breath and increased lower extremity edema. Subjective: Saw pt at bedside. Shw was sitting in armchair and stated she was feeling much better. No acute overnight events Review of Systems Constitutional: Denies: fever, weakness. EENTM: Reports: no symptoms. Cardiovascular: Denies: chest pain, palpitations. Respiratory: Denies: cough, short of breath. Gastrointestinal: Denies: constipation, diarrhea. Genitourinary: Reports: no symptoms, see HPI, discharge, dysuria, frequency, hematuria, hesitation, nocturia, pain, urgency. Musculoskeletal: Reports: no symptoms. Objective Last 24 Hrs of Vital Signs/I&O Vital Signs Date Time Temp Pulse Resp B/P B/P Pulse O2 O2 Flow FiO2 Mean Ox Delivery Rate 12/03 1600 94 Nasal 1.0L Cannula 12/03 1439 98.1 98 22 124/74 96 Nasal Cannula 12/03 1006 87 150/80 12/03 1006 87 150/80 12/03 0800 95 Nasal 2.0L Cannula 12/03 0708 98.1 87 20 150/80 97 12/03 0000 Nasal 2.0L Cannula 12/02 2220 97.8 84 22 144/72 96 12/02 2206 110 144/72 Intake & Output 12/03 1600 12/03 0800 12/03 0000 Intake Total 300 120 360 Output Total 650 350 200 Balance -350 -230 160 Intake, Oral 300 120 360 Number 1 Bowel Movements Output, Urine 650 350 200 Physical Exam General Appearance: Alert, Oriented X3, Cooperative HEENT: Atraumatic, PERRLA, EOMI Cardiovascular: Regular Rate, Normal S1, Normal S2, No Murmurs Abdomen: Soft, No Tenderness Extremities: +edema Assessment/Plan Assessment: ASSESSMENT: This is a 86 year old female with past medical history of hypertension, atrial fibrillation diagnosed in 2017 on Eliquis and cardizem, CHF diastolic dysfunction (2017 ECHO 55%), chronic left bundle branch block, hypothyroidism, previous left pleural effusion thoracocentesis August 2017 negative for malignancy who presents for CC: presyncopal episode, increasing shortness of breath and increased lower extremity edema. She was subsequently admitted to [facility] for acute on chronic diastolic CHF PLAN: 1. Acute on chronic diastolic CHF with moderate left pleural effusion * Continue Lasix IV 40mg once in AM * Follow-up ECHO * Possibly for thoracentesis on Monday * Strict I's and O's * Daily weights 2. Atrial Fibrillation: Rate between 87-106. * Con't Eliquis * Con't Cardizem 120mg daily * Con't Lopressor 50mg daily 3. Hypertensive Urgency: BP is 150/80. * Continue current regimen 4. Hypothyroidism * Cont Synthroid 5. Hyperlipidemia * Con't Zetia Full Code DVT PPx: Heparin SC Diet: Heart Healthy Problem List: 1. CHF (congestive heart failure) Pain Ratin Pain Location: none Pain Goal: Remain pain free Pain Plan: none Tomorrow's Labs & Rationales: cbc bep Katia Buchanan 12/03/17 1241: Attending MD Review Statement Attending Statement Attending MD Statement: examined this patient, discuss w/resident/PA/GROUP SUPERVISOR YARD, agreed w/resident/PA/GROUP SUPERVISOR YARD, discussed with family, reviewed EMR data (avail), discussed with nursing, discussed with case mgmt, reviewed images, amended to note Attending Assessment/Plan: 87 o/f with pmh of hypertension, paroxysmal afib, hypothyroidism comes with shortness of breath on exertion and acclerated hypertension. Clinically feeling better. vitals stable. Chest xray suggestive of not much change. Oxygen supplementation. Patient is admitted to inpatient medical services for accelerated hypertension and acute on chronic CHF exacerbation with preserved EF with improvement wih good urine output. Negative serial cardiac enzymes, cardiology recommnend to continue iv lasix, monitor I/O, daily weights. Resume home meds of eliquis and rate control agents for afib. Continue with negative balance. Hold on IR guided drainage of pleural effuison. Patient has thoracentesis in august negative for malignancy. Follow up with cardiology if Thoracocentesis needed. Obtain repeat chest xray in AM and if still pleural effusion persists consider thoracentesis. Need to hold eliquis before procedure. gi/dvt prophyalxis full code.
--- NOTE | 2017-12-03 11:52 | PN- Cardiology ---
Subjective Subjective: Patient seen and evaluated this morning offers no complaints. Shortness of breath has improved no chest pain dizziness lightheadedness. Review of Systems: Review of systems: See HPI, All other systems negative. Constitutional, no chills no fever, no malaise no weight loss Cardiovascular: No chest pain , no palpitation Respiratory: Positive dyspnea no cough no sputum no hemoptysis GI: No nausea no vomiting, Muscle skeletal: No joint pain Neurologic: no headache Heme/endocrine: No bruising Objective Vital Signs and I&Os Vital Signs Date Time Temp Pulse Resp B/P B/P Pulse O2 O2 Flow FiO2 Mean Ox Delivery Rate 12/03 1006 87 150/80 12/03 1006 87 150/80 12/03 0708 98.1 87 20 150/80 97 12/03 0000 Nasal 2.0L Cannula 12/02 2220 97.8 84 22 144/72 96 12/02 2206 110 144/72 12/02 1600 Nasal 2.0L Cannula 12/02 1529 98.1 67 18 134/80 96 Intake & Output 12/03 1600 12/03 0800 12/03 0000 12/02 1600 12/02 0800 12/02 0000 Intake Total 120 360 400 50 450 Output Total 350 200 972 056 [id number] Balance -230 160 -100 -370 -1150 Intake, Oral 120 360 400 50 450 Output, Urine 350 200 [id number] Patient 199 lb 201 lb Weight Weight Bed scale Bed scale Measurement Method Physical Exam: Well-developed well-nourished person in no acute distress HEENT: HEAD is atraumatic. moist mucous membranes. Neck: Supple, no bruit Cardiovascular: Irregular rhythm no murmurs rubs or gallops, normal JVP Respiratory: No respiratory distress. Patient speaking in full complete sentences. Diminished breath sounds bilaterally, crackles noted bibasilar Abdomen: Soft Extremity: 2+ edema noted to the right leg, 1+ edema to the left lower extremity Neuro: Alert oriented x3 Skin: No appreciable rash on exposed skin, skin is warm and dry. Assessment/Plan Assessment/Plan 86-year-old female with past medical history of A. fib on Eliquis, hypertension, hyperlipidemia, CHF with preserved EF, (last echo July 2017 EF 60-65%), hypothyroidism. Impression: Acute CHF exacerbation Atrial fibrillation History of chronic left bundle branch block History of hypertension History of hyperlipidemia with statin intolerance Hypothyroidism Recommendations: Echo pending Would recommend checking chest x-ray in a.m. Trend I's and O's daily weights Continue home Eliquis, diltiazem, metoprolol, losartan Would continue to diurese with Lasix 40 mg IV QD Continuous telemetry monitoring, trend BMP The plan was discussed with Dr. Liao.Thank you for the opportunity to assist in the patient's care. These do not hesitate to call with any questions. Vito Delgado PA-C [facility] [address] [place] [address], [address] [place] [address] Continue telemetry? Yes
[2017-12-03 14:39] VITALS: BP 124/74
--- NOTE | 2017-12-03 18:20 | ECHOCARDIOGRAM REPORT ---
ZANDER DUKE Age: 87 : 1930 Gender: F Exam Date: 12/02/2017 09:51 Exam Location: 1 [address] Ht (in): 60 Wt (lb): 202 BSA: 2.02 BP: 144 / 70 Ordering Physician: Salome Dunaway MD Referring Physician: Salome Dunaway MD Technologist: Fawn Burt [facility] Room Number: [id number] Indications: Rhythm: Sinus Technical Quality: poor FINDINGS Left Ventricle Normal size left ventricle. Left ventricular wall thickness moderately increased. Normal left ventricular ejection fraction estimated at 60-65%. Right Ventricle Normal right ventricular size and function. Right Atrium Normal right atrial size. Left Atrium Left atrial size at the upper limits of normal. Mitral Valve Mild mitral annular calcification. Mild mitral regurgitation. Aortic Valve Aortic valve not well visualized, grossly normal. Tricuspid Valve Tricuspid valve is normal in structure and function. Mild-to- moderate tricuspid regurgitation. Right ventricular systolic pressure estimated to be elevated at 44 mmHg. Pulmonic Valve Pulmonic valve not well visualized, grossly normal. Pericardium Small pericardial effusion. Pleural effusion. Left pleural effusion. Great Vessels Normal size aortic root. CONCLUSIONS Poor Echo window. Normal Left ventricular systolic function with mild to moderate concentric hypertrophy. Large left pleural effusion. Small pericardial effusion.Mild to moderate Pulmonary hypertension. Dash Lopes M.D. (Electronically Signed) Final Date: 03 December 2017 18:19 MEASUREMENTS (Male / Female) Normal Values 2D ECHO LV Diastolic Diameter PLAX 3.2 cm 4.2 - 5.9 / 3.9 - 5.3 cm LV Systolic Diameter PLAX 2.0 cm 2.1 - 4.0 cm LV Fractional Shortening PLAX 37.5 % 25 - 46 % LV Ejection Fraction 2D Teich 68.9 % IVS Diastolic Thickness 1.6 cm LVPW Diastolic Thickness 1.2 cm LV Relative Wall Thickness 0.9 LVOT Diameter 1.8 cm Aortic Root Diameter 2.7 cm LA Systolic Diameter LX 3.3 cm 3.0 - 4.0 / 2.7 - 3.8 cm DOPPLER AV Peak Velocity 99.5 cm/s AV Peak Gradient 4.0 mmHg LVOT Peak Velocity 98.2 cm/s LVOT Peak Gradient 3.9 mmHg AV Area Cont Eq pk 2.5 cm Mitral E Point Velocity 116.0 cm/s TR Peak Velocity 358.0 cm/s TR Peak Gradient 51.3 mmHg PV Peak Velocity 86.9 cm/s PV Peak Gradient 3.0 mmHg LV E' Lateral Velocity 8.7 cm/s Mitral E to LV E' Lateral Ratio 13.4 LV E' Septal Velocity 7.9 cm/s Mitral E to LV E' Septal Ratio 14.7
[2017-12-03 21:54] VITALS: BP 120/68
[2017-12-04 06:45] VITALS: BP 130/80
--- NOTE | 2017-12-04 07:00 | PN- Housestaff ---
Melania العراقي 12/04/17 0700: Subjective Follow-up For: Acute on Chronic Diastolic CHF with moderate pleural effusion Hypertensive Urgency - Resolved Atrial Fibrillation on Eliquis/Cardizem Presyncope Tele-Events Since Last Visit: Atrial fibrillation, rate 79-107 on telemetry Subjective: Patient seen and examined at bedside this morning. Patient was currently on 2 L nasal cannula on assessment this morning. Patient does not have home oxygen, will attempt to wean oxygen down and follow O2 sats. Patient currently not receiving dose of Eliquis given possible thoracocentesis on assessment a repeat chest x-ray or effusion today. Otherwise patient claims to be feeling well, tolerating diet, able to get out of bed and passed a bowel movement. Patient denies any chest pain, palpitations, shortness of breath, nausea, vomiting today. Review of Systems Constitutional: Denies: see HPI. Objective Last 24 Hrs of Vital Signs/I&O Vital Signs Date Time Temp Pulse Resp B/P B/P Pulse O2 O2 Flow FiO2 Mean Ox Delivery Rate 12/04 0927 90 130/80 12/04 0926 90 130/80 12/04 0800 95 Nasal 1.0L Cannula 12/04 0645 97.9 90 18 130/80 97 Nasal 2.0L Cannula 12/04 0000 Nasal 1.0L Cannula 12/03 2154 98.1 103 22 120/68 98 Nasal Cannula 12/03 2145 104 136/74 12/03 1600 94 Nasal 1.0L Cannula 12/03 1439 98.1 98 22 124/74 96 Nasal Cannula Intake & Output 12/04 1600 12/04 0800 12/04 0000 Intake Total 220 Output Total 400 300 Balance -180 -300 Intake, Oral 220 Output, Urine 400 300 Patient 205 lb Weight Weight Bed scale Measurement Method Physical Exam General Appearance: Alert, Oriented X3, Cooperative Skin: No Rashes, No Breakdown HEENT: PERRLA, EOMI, Mucous Membr. moist/pink Neck: Supple, No JVD Cardiovascular: Normal S1, Normal S2, irregular rythm Lungs: decreased breath sounds left lung base Abdomen: Normal Bowel Sounds, Soft, No Tenderness Neurological: Normal Speech, Strength at 5/5 X4 Ext, Normal Tone, Cranial Nerves 3-12 NL, Reflexes 2+ Extremities: +1 bilateral lower extremity edema R>L; significant improvement since admission Vascular: Normal Pulses, Pulses Symmetrical Current Medications: Current Medications Sig/Rayne Start time Last Medication Dose Route Stop Time Status Admin Acetaminophen 650 MG Q6P PRN 12/01 181 AC PO Acetaminophen 1,000 MG Q6P PRN 12/01 181 AC IV Apixaban 5 MG BID 12/02 1215 DC 12/03 PO 12/04 0600 1005 Diltiazem HCl 120 MG DAILY 12/02 0900 AC 12/04 PO 09 Ezetimibe 10 MG DAILY 12/01 1759 AC 12/04 PO 09 Furosemide 40 MG 7:30AM 12/03 0730 AC 12/04 IV 0800 Levothyroxine Sodium 0.075 MG DAILY AC 12/02 0700 AC 12/04 PO 0617 Losartan Potassium 50 MG DAILY 12/01 1800 AC 12/04 PO 926 Metoprolol Tartrate 50 MG BID 12/01 2100 AC 12/04 PO 925 Morphine Sulfate 1 MG Q4P PRN 12/01 1814 AC IV Last 24 Hrs of Lab/Jomar Results Last 24 Hrs of Labs/Mics: Laboratory Tests 12/04/17629: Anion Gap 11, Estimated GFR 59 L, BUN/Creatinine Ratio 28.9 H, CBC w Diff NO MAN DIFF REQ, RBC 5.13, MCV 84.0, MCH 27.3, MCHC 32.5 L, RDW 14.5, MPV 8.8, Gran % 66.5, Lymphocytes % 22.1, Monocytes % 8.7, Eosinophils % 2.3, Basophils % 0.4, Absolute Granulocytes 4.9, Absolute Lymphocytes 1.6, Absolute Monocytes 0.6 , Absolute Eosinophils 0.2, Absolute Basophils 0 Assessment/Plan Assessment: Patient is 86-year-old female past medical history of hypertension, atrial fibrillation diagnosed in 2017 on Eliquis and Cardizem, hyperlipidemia, chronic left bundle branch block and diastolic CHF and recent echo demonstrating 60-65%, previous pleural effusion with thoracocentesis on August 2017, presented to the ED for presyncopal episode, shortness of breath and lower extremity edema. In addition patient was found to have blood pressures of 206/113 and hypertensive urgency in the ER. Patient was given IV hydralazine 1 and IV Lasix 1. Eliquis held today given assessments of patient's chest x-ray given recent left- sided pleural effusion. Problem list: 1. Acute on chronic diastolic CHF with moderate left-sided pleural effusion 2. Atrial fibrillation 2. Hypertension/hypertensive urgency-blood pressure is controlled 4. Hypothyroidism 3. Hyperlipidemia Acute on chronic diastolic CHF with moderate left-sided pleural effusion * Repeat chest x-ray 12/04/17: Findings consistent with mild improvement in pulmonary edema, persistent trace right-sided small to moderate left-sided pleural effusion, persistent enlarged cardiomediastinal silhouette * Into diuresis with IV Lasix 40 mg * Follow-up with cardiology recommendations Atrial fibrillation * Patient's Eliquis held today given follow-up results of chest x-ray of left sided pleural effusion and possible thoracocentesis * Continue Cardizem 120 p.o. daily * continue to monitor on telemetry Hypertensive/hypertensive urgency Patient admitted for initial hypertensive urgency with blood pressures 206/113 on admission. Blood pressure is currently controlled * Continue losartan 50 mg p.o. daily * Can you Lopressor 50 mg twice daily * Continue IV Lasix 40 mg * Continue Cardizem 120 p.o. daily Hypothyroidism * Continue levothyroxine 0.075 mg Hyperlipidemia * Continue Zetia 10 mg Code Status: Full Code DVT PPx: Heparin SC Diet: Heart healthy Problem List: 1. CHF (congestive heart failure) 2. Recurrent left pleural effusion 3. Hypothyroid Pain Ratin Pain Location: patient denies pain today Pain Goal: Remain pain free Pain Plan: as per pain pathway Tomorrow's Labs & Rationales: cbc bep DVT/Prophylaxis: mechanical, pharmacological Fadumo Lopes MD 12/04/17 1139: Attending Review Statement Attending Statement Attending MD Statement: examined this patient, discuss w/resident/PA/PROTECTIVE SIGNAL INSTALLER, agreed w/resident/PA/PROTECTIVE SIGNAL INSTALLER, reviewed EMR data (avail), discussed with nursing, discussed with case mgmt, reviewed images Attending Assessment/Plan: 87-year-old female past medical history of hypertension, atrial fibrillation and pulmonary hypertension with heart failure with a preserved ejection fraction. She is here with bilateral lower extremity swelling and we are treating her for acute diastolic heart failure with IV Lasix. Right now we have her anticoagulant on hold in the event that she would need a thoracentesis. Will need to follow-up on the results of the chest x-ray today and talk to cardiology.
[2017-12-04 08:00] LABS: ABSOLUTE BASOPHIL COUNT 0 /CUMM (0.0-0.2); ABSOLUTE EOSINOPHIL COUNT 0.2 /CUMM (0.0-0.7); ABSOLUTE GRANULOCYTE CT 4.9 /CUMM (1.4-6.5); ABSOLUTE LYMPH COUNT 1.6 /CUMM (1.2-3.4); ABSOLUTE MONOCYTE COUNT 0.6 /CUMM (0.10-0.60); BASOPHIL % 0.4 % (0.0-2.0); EOSINOPHIL % 2.3 % (0-5); GRANULOCYTE % 66.5 % (42.2-75.2); HEMATOCRIT 43.1 % (37-47); MEAN CORPUSCULAR HGB 27.3 PG (27.0-31.0); MEAN CORPUSCULAR HGB CONC 32.5 G/DL (33.0-37.0); MEAN PLATELET VOLUME 8.8 FL (7.4-10.4); PLATELET COUNT 266 /CUMM (130-400); RBC DISTRIBUTION WIDTH 14.5 % (11.5-14.5); RED BLOOD CELL CT 5.13 /CUMM (4.20-5.40); WHITE BLOOD CELL COUNT 7.3 /CUMM (4.8-10.8)
--- NOTE | 2017-12-04 08:50 | RADIOLOGY REPORT ---
EXAMINATION: XR PORTABLE CHEST CLINICAL INFORMATION: CHF, shortness of breath. Presumptive diagnosis of pleural effusion. COMPARISON: Several prior chest x-rays, most recent of which is dated 12/02/2017. TECHNIQUE: Portable frontal view of the chest was obtained. FINDINGS: EKG leads overlie the chest, obscuring assessment. The cardiac mediastinal silhouette is markedly enlarged, unchanged from prior exam. Allowing for differences in technique, there appears to be slight improvement in the pulmonary edema. Trace right-sided pleural effusion is again seen in the minor fissure. There is likely a small to moderate-sized left-sided pleural effusion, obscuring the retrocardiac left lung base and the left heart border. No pneumothorax is seen. Osteopenia is noted with mild vertebral spondylosis throughout the mid and lower thoracic spine. IMPRESSION: 1. Findings are consistent with mild improvement in pulmonary edema. 2. Persistent trace right-sided small to moderate left-sided pleural effusion. 3. Persistent enlarged cardiomediastinal silhouette.
[2017-12-04 14:22] VITALS: BP 132/84
--- NOTE | 2017-12-04 17:05 | PN- Cardiology ---
Subjective Subjective: Patient denies chest pain at rest, reports dyspnea is much improved from admission. Patient denies chest pain, palpitations, PND/orthopnea. Objective Vital Signs and I&Os Vital Signs Date Time Temp Pulse Resp B/P B/P Pulse O2 O2 Flow FiO2 Mean Ox Delivery Rate 12/04 1422 97.6 66 20 132/84 95 Nasal 1.0L Cannula 12/04 0927 90 130/80 12/04 0926 90 130/80 12/04 0800 95 Nasal 1.0L Cannula 12/04 0645 97.9 90 18 130/80 97 Nasal 2.0L Cannula 12/04 0000 Nasal 1.0L Cannula 12/03 2154 98.1 103 22 120/68 98 Nasal Cannula 12/03 2145 104 136/74 Intake & Output 12/04 1600 12/04 0800 12/04 0000 12/03 1600 12/03 0000 Intake Total 400 220 300 120 360 Output Total 1300 400 300 650 350 200 Balance -900 -180 -300 -350 -230 160 Intake, Oral 400 220 300 120 360 Number 1 Bowel Movements Output, Urine 1300 400 300 650 350 200 Patient 92.986 kg Weight Weight Bed scale Measurement Method Physical Exam: General: no apparent distress HEENT: NCAT, NO JVD Heart: s1s2, irregular rhythm, no MRG Lungs: Poor bibasilar breath sounds L>R, fair air entry bilaterally, no rales/ rhonchi/wheeze Abd: soft, nt Ext: no peripheral edema Current Medications: Current Medications Sig/Rayne Start time Last Medication Dose Route Stop Time Status Admin Acetaminophen 650 MG Q6P PRN 12/01 1814 AC PO Acetaminophen 1,000 MG Q6P PRN 12/01 181 AC IV Apixaban 5 MG BID 12/02 1215 DC 12/03 PO 12/04 0600 1005 Diltiazem HCl 120 MG DAILY 12/02 09 AC 12/04 PO 09 Ezetimibe 10 MG DAILY 12/01 1759 AC 12/04 PO 926 Furosemide 40 MG 7:30AM 12/03 07 AC 12/04 IV 0800 Levothyroxine Sodium 0.075 MG DAILY AC 12/02 07 AC 12/04 PO 0617 Losartan Potassium 50 MG DAILY 12/01 1800 AC 12/04 PO 09 Metoprolol Tartrate 50 MG BID 12/01 2100 AC 12/04 PO 0926 Morphine Sulfate 1 MG Q4P PRN 12/01 1815 AC IV Results Last 48 Hrs of Labs/Mics: Laboratory Tests 12/04/17 0630: Anion Gap 11, Estimated GFR 59 L, BUN/Creatinine Ratio 28.9 H, CBC w Diff NO MAN DIFF REQ, RBC 5.13, MCV 84.0, MCH 27.3, MCHC 32.5 L, RDW 14.5, MPV 8.8, Gran % 66.5, Lymphocytes % 22.1, Monocytes % 8.7, Eosinophils % 2.3, Basophils % 0.4, Absolute Granulocytes 4.9, Absolute Lymphocytes 1.6, Absolute Monocytes 0.6 , Absolute Eosinophils 0.2, Absolute Basophils 0 12/03/17 0610: Anion Gap 13, Estimated GFR 52 L, BUN/Creatinine Ratio 26.0 H, PT 22.7 H, INR 2.07 H, CBC w Diff NO MAN DIFF REQ, RBC 4.88, MCV 82.8, MCH 28.0, MCHC 33.9, RDW 14.1, MPV 8.8, Gran % 69.4, Lymphocytes % 20.0 L, Monocytes % 9.0, Eosinophils % 1.2, Basophils % 0.4, Absolute Granulocytes 5.3, Absolute Lymphocytes 1.5, Absolute Monocytes 0.7 H, Absolute Eosinophils 0.1, Absolute Basophils 0 Recent Imaging Studies: Telemetry: Personally reviewed, atrial fibrillation with good rate control Chest x-ray: 12/04 1. Findings are consistent with mild improvement in pulmonary edema. 2. Persistent trace right-sided small to moderate left-sided pleural effusion. 3. Persistent enlarged cardiomediastinal silhouette. Assessment/Plan Assessment/Plan 1. acute on chronic diastolic heart failure/HFpEF, improved 2. permanent atrial fibrillation on eliquis chronically, currently being held for possible thoracocentesis 3. HTN 4. HLD w statin intolerance 5. Hypothyroidism Patient is hemodynamically stable, heart rate well controlled. Repeat chest x- ray reviewed, left-sided pleural effusion is similar to previous, however overall fluid overload/CHF exacerbation has improved with diuresis. Would continue IV diuresis with Lasix, trend electrolytes, renal function, I/O, daily weight. If patient does not significantly improve over the next 24-48 hours, can reconsider thoracentesis. Can continue to hold Eliquis in the short-term. Otherwise continue with current cardiac regimen. Continue telemetry? Yes
[2017-12-04 22:12] VITALS: BP 130/72
[2017-12-05 06:47] VITALS: BP 140/80
--- NOTE | 2017-12-05 07:21 | PN- Housestaff ---
Yves Anglin 12/05/17 0721: Subjective Follow-up For: moderate left-sided pleural effusion and small right-sided pleural effusion possibly secondary to CHF Subjective: Patient has no complaints. No history of shortness of breath Review of Systems Constitutional: Reports: see HPI. Denies: no symptoms. Objective Last 24 Hrs of Vital Signs/I&O Vital Signs Date Time Temp Pulse Resp B/P B/P Pulse O2 O2 Flow FiO2 Mean Ox Delivery Rate 12/05 09 97.5 107 18 140/80 12/05 0940 97.5 107 18 140/80 12/05 0647 97.5 107 18 140/80 95 12/05 0000 Nasal 1.0L Cannula 12/04 2212 97.5 93 20 130/72 96 12/04 2020 100 162/84 12/04 1600 95 Nasal 1.0L Cannula 12/04 1422 97.6 66 20 132/84 95 Nasal 1.0L Cannula Intake & Output 12/05 1600 12/05 0800 12/05 0000 Intake Total 50 Output Total 100 300 Balance -50 -300 Intake, Oral 50 Output, Urine 100 300 Patient 196 lb Weight Physical Exam General Appearance: Alert, Oriented X3, Cooperative Cardiovascular: Normal S1, Normal S2, No Murmurs Lungs: decreased breath sounds on the left side. Abdomen: Soft, No Hepatospenomegaly Neurological: Normal Speech, Strength at 5/5 X4 Ext, Normal Tone, Sensation Intact Extremities: No Clubbing, No Cyanosis, No Edema, Normal Pulses, No Tenderness/ Swelling Current Medications: Current Medications Sig/Rayne Start time Last Medication Dose Route Stop Time Status Admin Acetaminophen 650 MG Q6P PRN 12/01 1815 AC PO Acetaminophen 1,000 MG Q6P PRN 12/01 1815 AC IV Diltiazem HCl 120 MG DAILY 12/02 09 AC 12/05 PO 0940 Ezetimibe 10 MG DAILY 12/01 1759 AC 12/05 PO 0940 Furosemide 40 MG 7:30AM 12/03 0730 AC 12/05 IV 0940 Levothyroxine Sodium 0.075 MG DAILY AC 12/02 0700 AC 12/05 PO 0551 Losartan Potassium 50 MG DAILY 12/01 1800 AC 12/05 PO 0940 Metoprolol Tartrate 50 MG BID 12/01 2100 AC 12/05 PO 0940 Morphine Sulfate 1 MG Q4P PRN 12/01 1815 AC IV Last 24 Hrs of Lab/Jomar Results Last 24 Hrs of Labs/Mics: Laboratory Tests 12/05/17 0645: Anion Gap 9, Estimated GFR 59 L, BUN/Creatinine Ratio 28.9 H, CBC w Diff NO MAN DIFF REQ, RBC 5.04, MCV 83.5, MCH 27.4, MCHC 32.8 L, RDW 14.3, MPV 8.6, Gran % 67.2, Lymphocytes % 20.0 L, Monocytes % 10.6 H, Eosinophils % 1.8, Basophils % 0.4, Absolute Granulocytes 5.0, Absolute Lymphocytes 1.5, Absolute Monocytes 0.8 H, Absolute Eosinophils 0.1, Absolute Basophils 0 Assessment/Plan Problem List: 1. CHF (congestive heart failure) -Acute on chronic heart failure preserved ejection fraction -Symptoms improved with lasix Patient is hemodynamically stable heart rate is well controlled with diuresis Continue Lasix Follow-up a chest x-ray for tomorrow. As per cardiology increase the dose of diltiazem for rate control if the patient is tachycardic Eliquis restarted 2. Recurrent left pleural effusion Patient is doing better follow-up chest x-ray tomorrow Pain Ratin Pain Location: n/a Pain Goal: Remain pain free Pain Plan: n/a Tomorrow's Labs & Rationales: none Fadumo Lopes MD 12/05/17 1146: Attending MD Review Statement Attending Statement Attending MD Statement: examined this patient, discuss w/resident/PA/MORTGAGE LOAN REVIEWER, agreed w/resident/PA/MORTGAGE LOAN REVIEWER, reviewed EMR data (avail), discussed with nursing, discussed with case mgmt, reviewed images Attending Assessment/Plan: 87-year-old female who we are treating for acute diastolic heart failure with IV diuresis. We have the Eliquis on hold in case we need to do a thoracentesis. Will try and taper off the oxygen today she is resting comfortably and has diuresed with the effusion being little bit less on yesterday's chest x-ray. Will speak to cardiology and if stable likely resume her Eliquis today.
[2017-12-05 07:50] LABS: ABSOLUTE BASOPHIL COUNT 0 /CUMM (0.0-0.2); ABSOLUTE EOSINOPHIL COUNT 0.1 /CUMM (0.0-0.7); ABSOLUTE LYMPH COUNT 1.5 /CUMM (1.2-3.4); ABSOLUTE MONOCYTE COUNT 0.8 /CUMM (0.10-0.60); BASOPHIL % 0.4 % (0.0-2.0); EOSINOPHIL % 1.8 % (0-5); GRANULOCYTE % 67.2 % (42.2-75.2); HEMATOCRIT 42.1 % (37-47); MEAN CORPUSCULAR HGB 27.4 PG (27.0-31.0); MEAN CORPUSCULAR HGB CONC 32.8 G/DL (33.0-37.0); MEAN CORPUSCULAR VOLUME 83.5 FL (81.0-99.0); MEAN PLATELET VOLUME 8.6 FL (7.4-10.4); PLATELET COUNT 273 /CUMM (130-400); RBC DISTRIBUTION WIDTH 14.3 % (11.5-14.5); RED BLOOD CELL CT 5.04 /CUMM (4.20-5.40); WHITE BLOOD CELL COUNT 7.4 /CUMM (4.8-10.8)
--- NOTE | 2017-12-05 11:17 | PN- Cardiology ---
Subjective Subjective: Patient feels well overall. She states she ambulated without difficulty. She was even able to ascend 5 steps. Review of Systems: Eyes no blurred or double vision Ears no deafness or ringing Nose and throat no recurrent sinusitis Lungs per history of present illness Heart per history of present illness Abdomen no nausea vomiting Musculoskeletal occasional muscle and joint pains Psych no anxiety or depression Neuro without recurrent headache or seizures Endocrine no heat or cold intolerance Objective Vital Signs and I&Os Vital Signs Date Time Temp Pulse Resp B/P B/P Pulse O2 O2 Flow FiO2 Mean Ox Delivery Rate 12/05 0940 97.5 107 18 140/80 12/05 0940 97.5 107 18 140/80 12/05 0647 97.5 107 18 140/80 95 12/05 0000 Nasal 1.0L Cannula 12/04 2212 97.5 93 20 130/72 96 12/04 2020 100 162/84 12/04 1600 95 Nasal 1.0L Cannula 12/04 1422 97.6 66 20 132/84 95 Nasal 1.0L Cannula Intake & Output 12/05 1600 12/05 0800 12/05 0000 12/04 1600 12/04 0800 12/04 0000 Intake Total 50 400 220 Output Total 902 632 2269 400 300 Balance -50 -300 -900 -180 -300 Intake, Oral 50 400 220 Output, Urine 184 467 1094 400 300 Patient 196 lb 205 lb Weight Weight Bed scale Measurement Method Physical Exam: Patient is a well-developed well-nourished female appearing in no acute distress HEENT is unremarkable Neck is supple there is no JVD Lungs are clear Heart irregular rhythm S1 and S2 are normal no murmurs gallops or rubs Abdomen bowel sounds positive Extremities without edema Current Medications: Current Medications Sig/Rayne Start time Last Medication Dose Route Stop Time Status Admin Acetaminophen 650 MG Q6P PRN 12/01 1814 AC PO Acetaminophen 1,000 MG Q6P PRN 12/01 1814 AC IV Diltiazem HCl 120 MG DAILY 12/02 09 AC 12/05 PO 0940 Ezetimibe 10 MG DAILY 12/01 1759 AC 12/05 PO 0940 Furosemide 40 MG 7:30AM 12/03 0730 AC 12/05 IV 0940 Levothyroxine Sodium 0.075 MG DAILY AC 12/02 07 AC 12/05 PO 0551 Losartan Potassium 50 MG DAILY 12/01 1800 AC 12/05 PO 0940 Metoprolol Tartrate 50 MG BID 12/01 2100 AC 12/05 PO 0940 Morphine Sulfate 1 MG Q4P PRN 12/01 181 AC IV Results Last 48 Hrs of Labs/Mics: Laboratory Tests 12/05/17 0645: Anion Gap 9, Estimated GFR 59 L, BUN/Creatinine Ratio 28.9 H, CBC w Diff NO MAN DIFF REQ, RBC 5.04, MCV 83.5, MCH 27.4, MCHC 32.8 L, RDW 14.3, MPV 8.6, Gran % 67.2, Lymphocytes % 20.0 L, Monocytes % 10.6 H, Eosinophils % 1.8, Basophils % 0.4, Absolute Granulocytes 5.0, Absolute Lymphocytes 1.5, Absolute Monocytes 0.8 H, Absolute Eosinophils 0.1, Absolute Basophils 0 12/04/17 0630: Anion Gap 11, Estimated GFR 59 L, BUN/Creatinine Ratio 28.9 H, CBC w Diff NO MAN DIFF REQ, RBC 5.13, MCV 84.0, MCH 27.3, MCHC 32.5 L, RDW 14.5, MPV 8.8, Gran % 66.5, Lymphocytes % 22.1, Monocytes % 8.7, Eosinophils % 2.3, Basophils % 0.4, Absolute Granulocytes 4.9, Absolute Lymphocytes 1.6, Absolute Monocytes 0.6 , Absolute Eosinophils 0.2, Absolute Basophils 0 Telemetry personally reviewed atrial fibrillation with intermittent rapid ventricular response Assessment/Plan Assessment/Plan 1. acute on chronic diastolic heart failure/HFpEF, improved 2. permanent atrial fibrillation on eliquis chronically, currently being held for possible thoracocentesis 3. HTN 4. HLD w statin intolerance 5. Hypothyroidism 6. Small right with moderate left pleural effusion Recommendations 1. I would continue to diurese monitoring renal function closely 2. Eliquis is still on hold for possible thoracentesis. If there are no plans for intervention I would recommend resuming it for stroke prevention. 3. If patient remains tachycardic consider increasing diltiazem for rate control Continue telemetry? Yes
--- NOTE | 2017-12-05 13:58 | Patient Discharge Instructions ---
Discharge Instructions General Discharge Information You were seen/treated for: Acute on chronic diastolic heart failure [id number] pleural effusion Hypertensive urgency Special Instructions: Follow-up with PCP in 1 week after discharge Follow-up with mime artist in 1 week after discharge Diet Continue normal diet: Yes Activity Full Activity/No Limits: Yes Acute Coronary Syndrome Inclusion Criteria At DC or during hospital stay patient has or had the following: ACS DIAGNOSIS No Discharge Core Measures Meds if any: Prescribed or Continued at Discharge Meds if any: NOT Prescribed or Continued at Discharge Congestive Heart Failure Inclusion Criteria At DC or during hospital stay patient has or had the following: CHF DIAGNOSIS No Discharge Core Measures Meds if any: Prescribed or Continued at Discharge Meds if any: NOT Prescribed or Continued at Discharge Cerebrovascular accident Inclusion Criteria At DC or during hospital stay patient has or had the following: CVA/TIA Diagnosis No Discharge Core Measures Meds if any: Prescribed or Continued at Discharge Meds if any: NOT Prescribed or Continued at Discharge Venous thromboembolism Inclusion Criteria VTE Diagnosis No VTE Type NONE VTE Confirmed by (Test) NONE Discharge Core Measures - Per Current guidelines, there needs to be overlap - treatment for the first 5 days of Warfarin therapy. - If discharged on Warfarin prior to 5 days of - overlap therapy, the patient will need to be - assessed for post discharge needs including - *Post discharge parental anticoagulation - *Warfarin and/or parental anticoagulation education - *Follow up date to check INR post discharge At least 5 days overlap therapy as Inpatient No Meds if any: Prescribed or Continued at Discharge Note: Overlap Therapy is Warfarin and Anticoagulant Meds if any: NOT Prescribed or Continued at Discharge
[2017-12-05 14:42] VITALS: BP 132/70
[2017-12-05 22:06] VITALS: BP 142/82
[2017-12-06 06:30] VITALS: BP 130/80
--- NOTE | 2017-12-06 07:55 | PN- Housestaff ---
Yves Anglin 12/06/17 0755: Subjective Follow-up For: Amie bull Complaints: no complaints Tele-Events Since Last Visit: None Subjective: Patient is asymptomatic and ready to go home. No dyspnea Review of Systems Constitutional: Reports: see HPI. Objective Last 24 Hrs of Vital Signs/I&O Vital Signs Date Time Temp Pulse Resp B/P B/P Pulse O2 O2 Flow FiO2 Mean Ox Delivery Rate 12/06 802 79 130/80 12/06 08 79 130/80 12/06 08 91 Room Air Room Air 12/06 0630 97.8 79 24 130/80 91 12/05 2206 98.3 90 24 142/82 92 12/05 2201 92 142/82 Intake & Output 12/06 1600 12/06 0812/06 0000 Intake Total 240 220 220 Output Total 1175 1 Balance -935 220 219 Intake, Oral 240 220 220 Number 1 Bowel Movements Output, Stool 1 Output, Urine 1175 Patient 194 lb Weight Physical Exam General Appearance: Alert, Oriented X3, Cooperative, No Acute Distress Cardiovascular: Regular Rate, No Murmurs Lungs: Clear to Auscultation, Normal Air Movement Abdomen: Normal Bowel Sounds, Soft, No Tenderness, No Hepatospenomegaly, No Masses Neurological: Normal Speech, Strength at 5/5 X4 Ext, Normal Tone, Sensation Intact Extremities: No Clubbing, No Cyanosis, No Edema, Normal Pulses, No Tenderness/ Swelling Assessment/Plan Assessment: 87-year-old female patient past medical history of hypertension atrial fibrillation on Eliquis and Cardizem chronic left bundle branch block and diastolic CHF with moderate pleural effusion that was treated with thoracentesis in August 2017 presented to [facility] with recurrent left-sided pleural effusion Problem List: 1. Dyspnea on exertion Patient was treated with Lasix 40 mg IV pleural effusion is improved on radiology evaluation Patient feels symptomatically better Continue Lasix 40 mg per oral daily and discharge the patient 2. Rapid atrial fibrillation Patient is on apixaban Cardizem, metoprolol Patient also has hypertension and is on losartan Continue the above-mentioned medications Patient is symptomatically better and ready for discharge 3. CHF (congestive heart failure) Patient is taking losartan Decreased dyspnea Patient is symptomatically better and ready for discharge Pain Ratin Pain Location: None Pain Goal: Remain pain free Pain Plan: None Tomorrow's Labs & Rationales: None D'Leon MD,Fadumo 12/06/17 1045: Attending MD Review Statement Attending Statement Attending MD Statement: examined this patient, discuss w/resident/PA/CHAIN LINK FENCE INSTALLER, agreed w/resident/PA/CHAIN LINK FENCE INSTALLER, reviewed EMR data (avail), discussed with nursing, reviewed images Attending Assessment/Plan: Patient is feeling well. She is eager to go home. She is off the oxygen completely and saturating well above 90%. We treated her for acute diastolic heart failure with IV Lasix. Her usual dose is 20 alternating with 40 but I spoke to cardiology and we are going to discharge her on 40 mg daily. We set up with visiting nurse service, home PT and outpatient CHF clinic.
[2017-12-06 08:03] VITALS: BP 130/80
--- NOTE | 2017-12-06 08:59 | Discharge Summary ---
See Addendum Visit Information Visit Dates Admission Date: 12/01/17 Discharge Date: 12/06/2017 Hospital Course Course Attending Physician: Moses SINGLETON,Fadumo Holloway Primary Care Physician: Sheila SINGLETON,Javier Tamez Consulting Request: Consulting Specialty: Cardiology Hospital Course: Ms. Selby is an 87-year-old female patient with a past medical history of hypertension, atrial fibrillation on Eliquis and Cardizem, a previous episode of pleural effusion in August 2017 ruled out for malignancy. SHE came with a history of dizziness, shortness of breath, ankle swelling. She was diagnosed with congestive heart failure and left-sided moderate pleural effusion seen on radiological evaluation. She was initially planned for a thoracentesis and her Eliquis was stopped and was started on pharmacological treatment with Lasix for improvement of shortness of breath and oxygen, nasal cannula. Her symptoms improved with Lasix 40 mg IV. There was really radiological improvement. The patient was restarted on Eliquis and observed for any respiratory symptoms. After 24 hours of observation and weaning of oxygen the patient was saturating well. The patient was discharged on Lasix 40 mg once a day per oral. Allergies: Coded Allergies: No Known Allergies (09/08/16) Disposition Summary Disposition Principal Diagnosis: moderate left sided pleural effusion Additional Diagnosis: chf Discharge Disposition: home or self care Discharge Instructions General Discharge Information Code Status: Full Code Patient's Diet: heart healthy Patient's Activity: as tolerated Follow-Up Instructions/Appts: follow up with PCP within 1 week of discharge follopw up with Cardiology within 1 week of discharge Medications at Discharge Discharge Medications: Continue taking these medications: Azilsartan Medoxomil (Edarbi) 80 MG TABLET 1 Tablet ORAL DAILY Comments: Last Taken: 12/06/17 Time: 8:00 AM LOS[facility]AN GIVEN [facility] Metoprolol Tartrate (Metoprolol Tartrate) 50 MG TABLET 1 Tablet ORAL TWICE DAILY Qty = 180 Comments: Last Taken: 12/06/17 Time: 8:00 AM Ezetimibe (Zetia) 10 MG TABLET 1 Tablet ORAL DAILY Qty = 30 Comments: Last Taken: 12/06/17 Time: 8:00 AM Apixaban (Eliquis) 5 MG TABLET 1 Tablet ORAL TWICE DAILY Qty = 30 Comments: Last Taken: 12/06/17 Time: 8:00 AM Diltiazem Cd (Diltiazem ER) 120 MG CAP.ER.DEG 1 Tablet ORAL DAILY Qty = 30 Comments: Last Taken: 12/06/17 Time: 8:00 AM Levothyroxine Sodium (Levothyroxine Sodium) 75 MCG TABLET 1 Tablet ORAL DAILY BEFORE BREAKFAST Comments: Last Taken: 12/06/17 Time: 6:30 AM The following medications have been changed: Old: Furosemide (Furosemide) 20 MG TABLET 2 Tablet ORAL EVERY 48 HOURS (Every 2 days) New: Furosemide (Furosemide) 20 MG TABLET 2 Tablet ORAL DAILY Qty = 60 Comments: Last Taken: 12/06/17 Time: 8:00 AM 40MG IV GIVEN THIS AM Copies To: Skylar SINGLETON,Quan Colby; Sheila SINGLETON,Javier Tamez
--- NOTE | 2017-12-06 09:39 | RADIOLOGY REPORT ---
EXAMINATION: XR PORTABLE CHEST CLINICAL INFORMATION: Shortness of breath. Presumptive diagnosis of pleural effusion. COMPARISON: Several prior chest x-rays, most recent of which is dated 12/04/2017. TECHNIQUE: Portable AP semierect view of the chest was obtained. FINDINGS: EKG leads overlie the chest. Cardiac mediastinal silhouette remains markedly enlarged. Ectasia and tortuosity of the aorta again noted. There is persistent mild central vascular congestion and minimal perihilar reticular prominence, suggestive of mild pulmonary edema, improved when compared to the prior exam. No significant right-sided pleural effusion is seen today. The right lung is better aerated with decrease in atelectatic change in the right lung base seen. There is a persistent small to moderate left-sided pleural effusion with associated retrocardiac opacity, likely due to atelectasis. No pneumothorax is seen. Multilevel vertebral spurring again noted in the spine. IMPRESSION: Improving pulmonary edema with essentially complete resolution of right-sided pleural effusion and small to moderate-sized left-sided pleural effusion remaining. There is likely associated atelectatic change in the left lung base.
[2017-12-06] MEDS ORDERED: FUROSEMIDE20 M1 PO ×2 (10:16→11:16)
== END 2017-12-06 13:50 | disposition home health service (06) | DRG 293 ==
LOC: ERH 14:19 → 1NO 15:59 → ERHI 15:59 → ENRESERV 16:46 → ENTRNSPT 17:34 → EDTRNSPTSTS 17:38 → EDTRNSPT 17:38 → 1NO 17:49 → CMPTRNSPT 18:00 → 1NO 12-03 11:33 → ENPENDDIS 12-06 10:31 → ENTRNSPT 12-06 13:26 → EDTRNSPT 12-06 13:45 → EDTRNSPTSTS 12-06 13:45 → 1NO 12-06 13:50 → CMPTRNSPT 12-06 14:10
PROVIDERS: Hospitalist; Physical Medicine & Rehabilitation Pain Medicine; Physician Assistant Medical; Student in an Organized Health Care Education/Training Program
DX: I11.0 Hypertensive heart disease with heart failure (principal); I50.33 Acute on chronic diastolic (congestive) heart failure; I48.2 Chronic atrial fibrillation; R06.00 Dyspnea, unspecified; Z79.01 Long term (current) use of anticoagulants; I44.7 Left bundle-branch block, unspecified; I16.0 Hypertensive urgency; E78.5 Hyperlipidemia, unspecified; E03.9 Hypothyroidism, unspecified
CPT/HCPCS: 1NSP; 84133; 84300; 36592; 71045; 71046; 81001; 82436; 87086; 93005; 93010; 93306; 96374; 96375; 97116-GO; 97161-GP; J0131; J0360; J1940